=== PATIENT | male | born 1985 | race Caucasian/White ===

== ENCOUNTER 2022-01-19 09:58 | Outpatient (CLI) | payer MEDICARE, MEDICAID, SELFPAY | END 2022-01-19 09:59 | disposition home or self-care (01) | LOC: INJ CL 10:06 | PROVIDERS: Visit Provider Family Medicine | DX: M54.16 Radiculopathy, lumbar region (principal) | CPT/HCPCS: 64483; J1100; Q9966 ==

== ENCOUNTER 2022-06-19 13:07 | Outpatient (CLI) | payer MEDICARE, MEDICAID, SELFPAY | END 2022-06-19 13:08 | disposition home or self-care (01) | LOC: INJ CL 13:09 | PROVIDERS: Visit Provider Family Medicine | DX: M54.16 Radiculopathy, lumbar region (principal); M51.36 Other intervertebral disc degeneration, lumbar region | CPT/HCPCS: 62323; J0702; Q9966 ==

== ENCOUNTER 2022-09-25 10:31 | Outpatient (CLI) | payer MEDICARE, MEDICAID, SELFPAY | END 2022-09-25 10:32 | disposition home or self-care (01) | PROVIDERS: Visit Provider Family Medicine | DX: M54.16 Radiculopathy, lumbar region (principal); M51.36 Other intervertebral disc degeneration, lumbar region | CPT/HCPCS: 64483; J1100; Q9966 ==

== ENCOUNTER 2023-01-08 10:12 | Outpatient (CLI) | payer MEDICARE, MEDICAID, SELFPAY | END 2023-01-08 10:13 | disposition home or self-care (01) | LOC: INJ CL 10:14 | PROVIDERS: Visit Provider Family Medicine | DX: M54.16 Radiculopathy, lumbar region (principal); M51.26 Other intervertebral disc displacement, lumbar region | CPT/HCPCS: 64483; J1100; Q9966 ==

== ENCOUNTER 2023-07-30 06:57 | Outpatient (CLI) | payer MEDICARE, MEDICAID, SELFPAY | END 2023-07-30 06:58 | disposition home or self-care (01) | LOC: INJ CL 06:58 | PROVIDERS: PCP Family Medicine; Visit Provider Family Medicine | DX: M54.16 Radiculopathy, lumbar region (principal); M51.36 Other intervertebral disc degeneration, lumbar region | CPT/HCPCS: 64483; J1100; Q9966 ==

== ENCOUNTER 2024-03-17 20:51 | Emergency (ER) | payer MEDICARE, MEDICAID, SELFPAY ==
[2024-03-17 21:06] VITALS: BP 145/96; PULSE 92; RESP 16; TEMP 37.2; O2SAT 96; BMI 39.4
--- NOTE | 2024-03-17 21:32 | ED.GENADULT ---
HPI - General Adult General Time Seen by Provider: 21:32 Date Seen: 03/17/24 Chief complaint: Hypertension Stated complaint: HBP 152/100, SOB-sent by triage nurse Time Seen by Provider: 03/17/24 21:32 Source: patient Mode of arrival: ambulatory Limitations: no limitations History of Present Illness HPI narrative: Charles is a very pleasant 38-year-old gentleman with history of cardiac abnormality of the left ventricle, bradycardia an asthma who comes to the emergency room at the urging of the [facility] nurse for evaluation regarding a migraine and high blood pressure. Charles states that he had the onset of what he describes as a migraine with pain on his forehead and top of his head 3 days ago that he describes as throbbing. He typically does not get headaches. He has no visual changes with this. He denies any trauma. Yesterday he checked his blood pressure and it was 131/111 and then went down. He had some neck discomfort but it is now resolved and he attributes this to sleeping poorly. Today is blood pressure was 142/100 and with his persistent headache he contacted the triage nurse. He was told to come in to be seen. Charles also describes some shortness of breath this morning with the onset of a nonproductive cough. He thinks that this shortness of breath does increase with activity. He is not currently short of breath. He denies a sore throat but describes it as itchy and states he has diarrhea today. He notes he had spicy food yesterday. He denies otherwise being ill or have any ill contacts. He does get his COVID vaccinations and received this year's COVID vaccination at the beginning of the month. He is surprised about his heart rate in the 90s because usually his heart rate is quite low. He denies lower extremity edema history of DVT recent extended car rides or plane trips or calf pain. He notes he does have a history of asthma but he is not been wheezing. He denies tobacco use alcohol or drugs. Charles notes that when he was approximately 15 years old he fainted. He had a tilt-table test and other tests at that time. He was told that he was going to need a pacemaker by the time he was 31 but he has not had that. Related Data Home Medications ?Medication ?Instructions ?Recorded ?Confirmed estradiol 2 mg tablet mg PO 03/17/24 fluoxetine 10 mg capsule 10 mg PO DAILY 03/17/24 03/17/24 levetiracetam 750 mg tablet 750 mg PO BID 03/17/24 03/17/24 naproxen 500 mg tablet mg PO DAILY 03/17/24 spironolactone 100 mg tablet 100 mg PO DAILY 03/17/24 03/17/24 Allergies Allergy/AdvReac Type Severity Reaction Status Date / Time bee venom protein (honey bee) Allergy Verified 07/30/23 07:45 nortriptyline Allergy Verified 07/30/23 07:45 paroxetine Allergy Verified 07/30/23 07:45 Pertussis Vaccines Allergy Verified 07/30/23 07:45 valproic acid Allergy Verified 07/30/23 07:45 Review of Systems Status of ROS: Reports: 10 or more systems reviewed and unremarkable except as noted in History and below Const: Denies: fever, chills or fatigue Eyes: Denies: change in vision, blind spots or seeing flashes ENMT: Denies: throat pain or nasal congestion Cardio: Reports: shortness of breath with exertion; Denies: chest pain, palpitations, edema or swelling of feet/ankles Resp: Reports: shortness of breath and cough; Denies: wheezing GI: Reports: diarrhea; Denies: abdominal pain, vomiting or blood in stool : Denies: painful urination Integ/Breast: Denies: rash or itching Neuro: Reports: headache; Denies: numbness in extremities Endo: Denies: fatigue Allergy/Immuno: Denies: wheezing PFSH PFSH Social History Smoking Status: Never smoker How often do you have a drink containing alcohol: never AUDIT-C Alcohol total score: 0 Non-prescribed substance use: denies use service: No Exam Narrative: Exam Narrative: Charles is alert and oriented. Very pleasant gentleman in no acute distress. EOM is full. Pupils equal round reactive. No photophobia. Eyebrow raise smile symmetrical. Oral cavity with moist mucous membranes. No erythema exudate in posterior oropharynx. No lymphadenopathy in neck is supple. Heart with regular rate and rhythm. I do not hear additional murmur or rub. Lungs are clear bilaterally. Abdomen soft nontender. Lower extremities with scant peripheral edema. Calves are without any discomfort or erythema. Homans sign is negative. Moving all extremities. Const: Vital Signs, click to edit/add: Vital Signs - 24 hr 03/17/24 21:06 03/17/24 23:09 Temperature 98.9 F Pulse Rate [Pulse Oximeter] 92 70 Respiratory Rate 16 16 Blood Pressure [Ri ght Upper Arm] 145/96 H 123/78 Pulse Oximetry 96 98 Oxygen Delivery Me thod Room Air Room Air Documenting provider has reviewed patient's vital signs: yes Course Course ED Course: At this time patient has a constellation of symptoms that do not lead me to 1 discrete diagnosis. He does have elevated blood pressure but I suspect this is actually secondary to the headache and not the cause of his headache. Will treat his headache with Reglan 10 mg Benadryl 50 mg at this time. Also of concern however is the left ventricle abnormality he is talking about. Do not have those notes for further explanation. I think we will place patient on a threat monitoring analyst do an EKG troponin D-dimer proBNP as well as CBC comprehensive panel and CRP. He is in agreement with this plan. Also headache diarrhea and shortness of breath may be secondary to COVID and thus will do the triple swab. Reevaluation(s) Reevaluation #1: Patient's blood pressure is much improved to 124 systolic. Hemoglobin white count and platelets within normal limits. Electrolyte panel reassuring with a normal potassium and creatinine and LFTs Ts are slightly elevated at 53 AST and 82 ALT. CRP is normal as is proBNP urinalysis without evidence of UTI COVID influenza and RSV negative point of care troponin is negative. Vital Signs Vital signs: Initial Vital Signs Temperature 98.9 F 03/17/24 21:06 Temperature Source Temporal Artery Scan 03/17/24 21:06 Pulse Rate 92 03/17/24 21:06 Pulse Rhythm Regular 03/17/24 21:06 Respiratory Rate 16 03/17/24 21:06 Blood Pressure 145/96 H 03/17/24 21:06 Blood Pressure Mean 112 H 03/17/24 21:06 Blood Pressure Position Sitting 03/17/24 21:06 Pulse Oximetry 96 03/17/24 21:06 Oxygen Delivery Method Room Air 03/17/24 21:06 Vital Signs Temperature 98.9 F 03/17/24 21:06 Pulse Rate 92 03/17/24 21:06 Respiratory Rate 16 03/17/24 21:06 Blood Pressure 145/96 H 03/17/24 21:06 Pulse Oximetry 96 03/17/24 21:06 Oxygen Delivery Method Room Air 03/17/24 21:06 Temperature 98.9 F 03/17/24 21:06 Pulse Rate 70 03/17/24 23:09 Respiratory Rate 16 03/17/24 23:09 Blood Pressure 123/78 03/17/24 23:09 Pulse Oximetry 98 03/17/24 23:09 Oxygen Delivery Method Room Air 03/17/24 23:09 Medications Administered Medications: Discontinued Medications Generic Name Dose Route Start Last Admin Trade Name Radu PRN Reason Stop Dose Admin Diphenhydramine HCl 50 mg 03/17/24 21:57 03/17/24 22:46 Diphenhydramine 50 Mg/Ml Inj IVP 03/17/24 21:58 50 mg ONCE ONE Administration Metoclopramide HCl 10 mg/ 102 mls @ 306 mls/hr 03/17/24 21:57 03/17/24 23:16 Sodium Chloride IVPB 03/17/24 21:58 Infused ONCE ONE Infusion Medical Decision Making MDM Narrative Medical decision making narrative: 1. Headache-resolved. Reglan 10 mg and Benadryl 50 mg IV given in the ED. patient notes that his headache is almost gone. Has tested negative for COVID influenza and RSV. Suggest ibuprofen or Tylenol as needed at home. 2. Shortness of breath-this was episodic earlier today. Patient has negative troponin, normal proBNP as well as EKG. D-dimer is negative. Lung sounds are clear as is x-ray. No shortness of breath or evidence of hypoxia in the ED. consider retesting for COVID if worsening over the next few days. Given the fact that the shortness of breath was episodic earlier today I do not feel the need for a 2nd troponin at this time. Patient has no chest pain or ongoing shortness of breath respiratory distress at this time. 3. Disposition -home at this time. Seek medical attention for worsening symptoms. Patient very excited to go home. Agrees that he feels safe doing so. Medical Records Medical records reviewed: Yes I reviewed the patient's medical records Lab Data Lab results reviewed: Yes I reviewed the patient's lab results Labs: Lab Results 03/17/24 03/17/24 03/17/24 Range/Units 22:04 22:09 22:20 WBC 10.10 (4.50-11.00) K/uL RBC 4.52 (4.30-5.90) m/uL Hgb 13.5 (13.5-17.5) gm/dL Hct 39.9 (37.0-53.0) % MCV 88 (80-100) fL MCH 30 (26-34) pg MCHC 34 (32-36) gm/dL RDW Coeff of Jess 12.3 (11.5-15.5) % Plt Count 285 (140-440) K/uL Neut % (Auto) 73.2 H (42.0-72.0) % Lymph % (Auto) 18.6 L (20-44) % [place] % (Auto) 5.1 (0.0-11.0) % Eos % (Auto) 2.0 (0.0-7.0) % Baso % (Auto) 0.5 (0.0-3.0) % Neut # (Auto) 7.40 H (1.7-7.0) K/uL Lymph # (Auto) 1.90 (0.90-2.90) K/uL [place] # (Auto) 0.50 (0.00-0.90) K/UL Eos # (Auto) 0.20 (0.00-0.50) K/uL Baso # (Auto) 0.05 (0.00-0.30) K/uL Abs Immat Gran (auto) 0.06 (0.00-0.30) K/uL Imm/Tot Granulo (auto) 0.6 % D-Dimer Quant (PE/DVT) 0.33 (0.00-0.50) ug/ml Sodium 134 L (135-149) mmol/L Potassium 3.8 (3.6-5.1) mmol/L Chloride 103 (96-114) mmol/L Carbon Dioxide 24 (20-32) mmol/L Anion Gap 7 (7-15) mEq/L BUN 20 (5-24) mg/dL Creatinine 1.1 (0.5-1.5) mg/dL Estimated Creat Clear 88.95 Estimated GFR 89 ml/min Glucose 97 (60-115) mg/dL Calcium 9.3 (8.4-10.6) mg/dL Magnesium 2.0 (1.5-2.6) mg/dL Total Bilirubin (0.1-1.5) mg/dL AST (12-35) U/L ALT (4-50) U/L Alkaline Phosphatase (40-150) U/L C-Reactive Protein (0.5-1.0) mg/dL NT-Pro-B Natriuret Pep pg/mL Total Protein (6.0-8.3) g/dL Albumin (3.3-5.0) g/dL Urine Color Yellow (Yellow) Urine Appearance Clear (Clear) Urine pH 6.5 (5.0-8.5) Ur Specific Velma 1.010 (1.000-1.030) Urine Protein Negative (Negative) Urine Glucose (UA) Negative (Negative) Urine Ketones Negative (Negative) Urine Blood Negative (Negative) Urine Nitrite Negative (Negative) Urine Bilirubin Negative (Negative) Urine Urobilinogen 0.2 (0.2-1.0) Ur Leukocyte Esterase Trace A (Negative) Urine RBC 0-2 (0-2) Urine WBC 2-5 (0-5) Ur Squamous Epith Cells Few (None-Few) Urine Bacteria Few A (None) SARS-CoV-2 (PCR) Negative SARS-CoV-2 (Negative) Influenza Type A (PCR) Negative PCR FLU A (Negative) Influenza Type B (PCR) Negative PCR FLU B (Negative) RSV (PCR) Negative PCR RSV (Negative) Lab Acknowledgement POC Troponin I (0.01-0.04) ng/ml 03/17/24 03/17/24 03/17/24 Range/Units 22:20 22:25 23:16 WBC (4.50-11.00) K/uL RBC (4.30-5.90) m/uL Hgb (13.5-17.5) gm/dL Hct (37.0-53.0) % MCV (80-100) fL MCH (26-34) pg MCHC (32-36) gm/dL RDW Coeff of Jess (11.5-15.5) % Plt Count (140-440) K/uL Neut % (Auto) (42.0-72.0) % Lymph % (Auto) (20-44) % [place] % (Auto) (0.0-11.0) % Eos % (Auto) (0.0-7.0) % Baso % (Auto) (0.0-3.0) % Neut # (Auto) (1.7-7.0) K/uL Lymph # (Auto) (0.90-2.90) K/uL [place] # (Auto) (0.00-0.90) K/UL Eos # (Auto) (0.00-0.50) K/uL Baso # (Auto) (0.00-0.30) K/uL Abs Immat Gran (auto) (0.00-0.30) K/uL Imm/Tot Granulo (auto) % D-Dimer Quant (PE/DVT) (0.00-0.50) ug/ml Sodium (135-149) mmol/L Potassium (3.6-5.1) mmol/L Chloride (96-114) mmol/L Carbon Dioxide (20-32) mmol/L Anion Gap (7-15) mEq/L BUN (5-24) mg/dL Creatinine (0.5-1.5) mg/dL Estimated Creat Clear Estimated GFR ml/min Glucose (60-115) mg/dL Calcium (8.4-10.6) mg/dL Magnesium Cancelled (1.5-2.6) mg/dL Total Bilirubin 0.2 (0.1-1.5) mg/dL AST 53 H (12-35) U/L ALT 82 H (4-50) U/L Alkaline Phosphatase 81 (40-150) U/L C-Reactive Protein 0.7 (0.5-1.0) mg/dL NT-Pro-B Natriuret Pep < 20 pg/mL Total Protein 7.6 (6.0-8.3) g/dL Albumin 4.5 (3.3-5.0) g/dL Urine Color (Yellow) Urine Appearance (Clear) Urine pH (5.0-8.5) Ur Specific Velma (1.000-1.030) Urine Protein (Negative) Urine Glucose (UA) (Negative) Urine Ketones (Negative) Urine Blood (Negative) Urine Nitrite (Negative) Urine Bilirubin (Negative) Urine Urobilinogen (0.2-1.0) Ur Leukocyte Esterase (Negative) Urine RBC (0-2) Urine WBC (0-5) Ur Squamous Epith Cells (None-Few) Urine Bacteria (None) SARS-CoV-2 (PCR) (Negative) Influenza Type A (PCR) (Negative) Influenza Type B (PCR) (Negative) RSV (PCR) (Negative) Lab Acknowledgement Test Added POC Troponin I 0.00 L (0.01-0.04) ng/ml Imaging Data Chest x-ray: Attestation: I have reviewed the pertinent imaging results. My impression: I do not note any widened mediastinum or large infiltrates. Radiologist's impression: Cardiovasculature and mediastinum: Heart size is normal. Unremarkable mediastinum. Lungs and pleural spaces: Lungs are clear. No sign of infiltrate or mass. No sign of pleural effusion. No pneumothorax. Bones and soft tissues: No significant findings. IMPRESSION: Negative chest. ECG Data Attestation: I personally reviewed and interpreted this ECG as follows: Interpretation: EKG by my read shows sinus rhythm at a rate of 78. I do not note any acute ST or T-wave changes. QT and OR intervals within normal limits. Discharge Plan Discharge Clinical Impression: Headache, Elevated blood pressure reading, Breath shortness Patient Disposition: Home, Self-Care Condition: Improved Additional Instructions: Rest, push fluids. You may use ibuprofen or Tylenol as needed for discomfort. Continue to monitor your blood pressure. If you find that you have elevated readings please follow-up with your primary clinic for further evaluation. Return to the emergency room as needed for increasing shortness of breath, chest pain, vomiting and as needed. Prescriptions: No Action spironolactone 100 mg tablet 100 mg PO DAILY fluoxetine 10 mg capsule 10 mg PO DAILY estradiol 2 mg tablet PO levetiracetam 750 mg tablet 750 mg PO BID naproxen 500 mg tablet PO DAILY Follow Up/Referrals: Cailin Strickland DO [Primary Care Provider] - Stand Alone Forms: [employer] Info Instructions
--- NOTE | 2024-03-17 21:57 | CRLHL7_ITS ---
For Patients: As a result of the Century Cures Act, medical imaging exams and procedure reports are released immediately into your electronic medical record. You may view this report before your referring provider. If you have questions, please contact your health care provider. INDICATION: Shortness of breath and hypertension. TECHNIQUE: Chest 1 views. COMPARISON: None. FINDINGS: Cardiovasculature and mediastinum: Heart size is normal. Unremarkable mediastinum. Lungs and pleural spaces: Lungs are clear. No sign of infiltrate or mass. No sign of pleural effusion. No pneumothorax. Bones and soft tissues: No significant findings. IMPRESSION: Negative chest. Dictated by Raz Paez MD @ 03/17/2024 11:24:09 PM (Electronically Signed)
--- OUTSIDE RECORDS SUMMARY | 2024-03-17 22:29 | XMS_ITS | Clinical Summary ---
Author Organization [facility] Address [place], [place] [address] Care Team Providers Care Sharepoint Engineer Name Role Phone Cailin Strickland DO Primary Care Provider [phone] Allergies Active Allergy Reactions Criticality Noted Date Comments Gabapentin Dizziness 11/26/2023 Nortriptyline Behavioral Disturbances,Bleeding 06/03/2002 Paroxetine Other - Describe In Comment Field 12/31/2014 bleeding Pertussis Vaccines Other - Describe In Comment Field 12/31/2014 unknown Valproic Acid Other - Describe In Comment Field 12/31/2014 Bleeding Venom-Honey Bee Dyspnea High 02/03/2015 Medications Medication Sig Dispensed Refills Start Date End Date Status ibuprofen (ADVIL; MOTRIN) 600 mg tabletIndication s:Acute right ankle pain,Peroneal tendinitis, right leg,Extensor tendinitis of foot Take 1 Tablet (600 mg) by mouth every 6 hours if needed for Pain. Maximum of 3200 mg in 24 hours. 90 Tablet 07/11/2022 Active albuterol HFA (PRO-AIR; VENTOLIN; PROVENTIL) 90 mcg/actuation inhalerIndicatio ns:Mild exercise-induced asthma Inhale 1-2 Puffs by mouth every 4 hours if needed for Shortness of Breath 1st choice or Wheezing 1st choice. 1 Each 5 07/12/2022 Active meclizine (ANTIVERT) 25 mg tabletIndication s:Bradycardia Take 1 Tablet (25 mg) by mouth three times daily. 15 Tablet 06/10/2023 Active EPINEPHrine (EPIPEN) 0.3 mg/0.3 mL auto-injectorInd ications:History of systemic reaction to hymenoptera sting Inject 0.3 mg intramuscular each time if needed for Allergic Reaction. 2 Each 07/15/2023 Active FLUoxetine (PROZAC) 10 mg capsuleIndicatio ns:Depression, major, in remission (HC) Take 1 Capsule (10 mg) by mouth every morning. 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 180 Tablet 07/18/2023 Active CPAPIndications: BOSSMAN (obstructive sleep apnea) CPAP machine for home use at pressure: 5-16 cmw , Nasal mask x1 q 3mos, with Nasal cushion x 2 q mo, Length of Need: 99 months, Frequency of use: Daily 1 Each 11 10/03/2023 Active naproxen (NAPROSYN) 500 mg tabletIndication s:L4-L5 disc bulge Take 1 Tablet (500 mg) by mouth every 12 hours if needed for Pain. 90 Tablet 10/22/2023 Active fluticasone (50 mcg per actuation) nasal solution (FLONASE)Indicat ions:Dysfunction of both eustachian tubes Inhale 2 Sprays into affected nostril(s) once daily. 16 g 5 11/26/2023 Active cholecalciferol (VITAMIN D3) 2,000 unit capsuleIndicatio ns:Vitamin D deficiency Take 1 Capsule (2,000 units) by mouth once daily. 90 Capsule 1 01/16/2024 Active spironolactone (ALDACTONE) 100 mg tabletIndication s:Gender dysphoria Take 1 Tablet (100 mg) by mouth once daily. 90 Tablet 1 01/16/2024 Active estradioL (ESTRACE) 2 mg tabletIndication s:Gender dysphoria Take two tablets (4 mg) by mouth in the morning and one tablet (2 mg) in the evening. 90 Tablet 03/12/2024 Active estradioL (ESTRACE) 2 mg tabletIndication s:Gender dysphoria Take two tablets (4 mg) by mouth in the morning and one tablet (2 mg) in the evening. 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 Well controlled epilepsy with partial complex se izures 07/11/2021 Vitamin D deficiency 07/11/2021 Heart murmur 07/11/2021 L4-L5 disc bulge 07/11/2021 Epilepsy 11/26/2019 Overview (07/12/2022): Indicates he's had epilepsy since he was born he does well with Keppra indicates he's not had a seizure for 7 years describes these as absent seizures. He does see Dr. Hylton Last Assessment & Plan: He reports he is well controlled on Keppra and has had not had a seizure for about 7 years Autism 12/31/2014 Overview (07/12/2022): Last Assessment & Plan: Patient indicates he has a cognitive delay however he does very well during his appointment time is quite a good historian pleasant and cooperative. Assessment & Plan (08/16/2021 1:58 PM CDT): Stable; doing well. Lumbar disc herniation 12/31/2014 Overview (07/12/2022): Last Assessment & Plan: Continue to follow along with providers managing this issue BOSSMAN (obstructive sleep apnea) 12/31/2014 Overview (01/27/2024): NPSG study 03/02/15 AHI 13 increasing to 76 while supine, REM fragmentation Respironics Dream Wear, small mask with medium headgear. 8sm h2o range 7-9 definite clinical improvement at 5 week Last Assessment & Plan: Continue with aggressive management of sleep apnea with CPAP. Encounters Date Type Department Care Team Description 03/16/2024 Telephone [facility] [address] [place] [address] Staff, Chavo Bariatric Weight Management 03/11/2024 Refill [facility] [address] [facility] [place] [address] Cailin Strickland, DO Refill Request (Estrace ) 03/03/2024 2:45 PM CDT Nurse/Clinic Staff Only [facility] [address] [facility] [facility] [place] [address] Immunization/Injec tion (COVID-19/); Immunization/Injec tion 03/03/2024 Travel 02/27/2024 Travel 01/24/2024 11:30 AM CDT Office Visit [facility] [address] [place] [address] [address] [place] [address] Pedro Lindquist MD CV Heart Failure Est (ANNUAL F/U CHF F/U REVIEW LABS DONE 01/15, ECHO DONE 01/20./) 01/24/2024 Travel 01/22/2024 3:45 PM CDT Office Visit [facility] [address] [facility] [place] [address] Quirino Pierce DPM Consult (Bilateral heel pain, R>L) 01/21/2024 9:00 AM CDT Orders Only [facility] [address] [place] [address] [address] [place] [address] 1 scan: (1-Ord) ECHO TTE COMPLETE W CONTRAST ([id number]) 01/21/2024 Travel 01/16/2024 8:20 AM CDT Office Visit [facility] [address] [facility] [place] [address] Cailin Strickland, DO Follow Up 01/16/2024 Medical Messaging [facility] [address] [place] [address] Cailin Strickland DO referal for voice therapy 01/16/2024 Travel 01/13/2024 7:30 AM CDT Orders Only [facility] [address] [place] [address] [place], [place] Lab 01/12/2024 Travel 01/11/2024 Travel 01/08/2024 Travel 01/06/2024 Telephone [facility] [address] [place] [address] Cailin Strickland, Lab 12/17/2023 10:12 AM CDT - 12/17/2023 11:59 PM CDT Hospital Encounter [facility] [address] [facility] [place] [address] Cailin Strickland, Jaki Barros, ADAM from Last 3 Months Immunizations Name Administration Dates Next Due COVID-19 VACCINE SPIKEVAX (M ODERNA 50MCG/0.5ML) 12YO+ PFS 03/03/2024 COVID-19 vaccine (Moderna 100mcg/0.5mL) PF, MDV 09/01/2020,08/04/2020 COVID-19 vaccine (Pfizer-Bio NTech 30mcg/0.3mL) 12YO+ BIVALENT PF, MDV 08/01/2022 COVID-19 vaccine (Pfizer-Bio NTech 30mcg/0.3mL) 12YO+ LUKASZ-SUCROSE PF, MDV 11/28/2021 Influenza Virus, Unspecified 02/01/2021 Influenza, CCIIV3 (Age >=6 MO) 02/16/2024 Influenza, IIV4 03/23/2022 Influenza, IIV4 (=>6mos) MDV 03/31/2023 Pneumococcal Conj 20-valent (Prevnar 20) 023 Td (Age >=7 Years) 07/04/2015 Td, Preservative Free (age >= 7 Years) 4 Tdap 06/19/2023 Family History Medical History Relation Name Comments Asthma Maternal Grandfather Diabetes Maternal Grandmother Coronary artery disease Mother Pace maker in place Diabetes Mother Thyroid Disease Mother Heart attack Other maternal uncle Cancer-colon No Family History Cancer-prostate No Family History Hyperlipidemia No Family History Hypertension No Family History Stroke No Family History Relation Name Status Comments Maternal Grandfather Maternal Grandmother Mother Other Social History Tobacco Use Types Packs/Day Years Used Date Smoking Tobacco: Never Smokeless Tobacco: Former Chew Tobacco Cessation:Counseling Given: Yes Alcohol Use Standard Drinks/Week Comments Not Currently 0 (1 standard drink = 0.6 oz pur e alcohol) PHQ-2 Answer Date Recorded PHQ-2 TOTAL SCORE 0 07/15/2023 Social Connections Answer Date Recorded Frequency of Communication with Friends and Fami ly Not on file 02/08/2024 Financial Resource Strain Answer Date R ecorded Difficulty of Paying Living Expenses 3 02/06/2023 Difficulty of Paying Living Expenses Not on file 02/06/2023 Food Insecurity Answer Date Recorded Worried About Running Out of Food in the Last Ye ar 2 02/06/2023 Transportation Needs Answer Date Record ed Lack of Transportation (Medical) 1 02/06/2023 Housing Stability Answer Date Recorded Unable to Pay for Housing in the Last Year 1 02/06/2023 Sex and Gender Information Value Date Recorded Sex Assigned at Male 11/09/2023 6:55 AM CDT Gender Identity Not on file Sexual Orientation Bisexual 11/09/2023 6: 55 AM CDT Obstetrics History Last Filed Vital Signs Vital Sign Reading Time Taken Comments Blood Pressure 140/80 01/24/2024 11:39 AM CDT Pulse 52 01/24/2024 11:39 AM CDT Temperature 36.8 ??C (98.3 ??F) 06/10/2023 3:41 PM CS T Respiratory Rate 16 06/10/2023 3:41 PM LINE WELDER Oxygen Saturation 99% 01/24/2024 11:39 AM CDT Inhaled Oxygen Concentration - - Weight 118.4 kg (261 lb) 01/24/2024 11:39 AM CDT Height 172.7 cm (5' 8) 01/24/2024 11:39 AM CDT Body Mass Index 39.68 01/24/2024 11:39 AM CDT Plan of Treatment Upcoming Encounters Date Type Department Care Team (Late st Contact Info) Description 04/17/2024 2:30 PM LINE WELDER Orders Only [facility] [address] [place] [address] [place] 04/20/2024 2:25 PM LINE WELDER Office Visit [facility] [address] [place] [address] Cailin Strickland, [address] [place] [address] Health Maintenance Due Date Last Done Comments Depression screening for age 12+ 07/18/2024 07/18/2023, 07/15/2023, 07/13/2022, Additional history exists BMI (ht and wt on same day) for age 18+ 01/23/2025 01/24/2024, 07/15/2023, 06/13/2023, Additional history exists Lipids for age 35-44 07/15/2028 07/15/2023, 07/12/2022, 07/12/2021 Tetanus booster 06/19/2033 06/19/2023, 06/03, 07/04/2015 HIV for age 15-65 Completed 07/12/2022 Hepatitis C screening for age 18-79 Completed 07/12/2022 Pneumococcal series for age 6-64 Aged Out 02/07/2023 No longer eligible based on patient's age to complete this topic Tdap Completed 06/19/2023 Influenza for age 9-49 Completed 4, 03/31/2023, 03/23/2022, Additional history exists COVID-19 vaccine series Completed 03/03/20 24, 03/16/2023, 08/01/2022, Additional history exists Procedures Procedure Name Priority Date/Time Associated Diagnosis Comments EKG 12 LEAD Routine 01/24/2024 11:25 AM CDT Bradycardia ECHO TTE COMPLETE W CONTRAST Routine 01/21/2024 9:42 AM CDT Noncompaction cardiomyopathy (HC) VITAMIN D 25 (DEFICIENCY) Routine 01/13/2024 7:43 AM CDT Medication monitoring encounter ESTRADIOL Routine 01/13/2024 7:43 AM CDT Medication monitoring encounter TESTOSTERONE,TOTAL Routine 01/13/2024 7: 43 AM CDT Medication monitoring encounter BASIC METABOLIC PANEL Routine 01/13/2024 7:43 AM CDT Noncompaction cardiomyopathy (HC) LIPID PANEL W REFLEX MEASURED LDL Routine 07/15/2023 11:28 AM LINE WELDER Screening for lipid disorders LC HIV-1/O/2, 4TH GENERATION Routine 07/12/2022 11:36 AM LINE WELDER Screening for HIV (human immunodeficiency virus) LC HCV ANTIBODY RFX TO QUANT PCR Routine 07/12/2022 11:36 AM LINE WELDER Need for hepatitis C screening test from Last 3 Months or Most Recently Relevant to Health Maintenance Results * EKG 12 LEAD (01/24/2024 11:25 AM CDT) Interpretation Sinus bradycardia Minimal voltage criteria for LVH, may be normal variant ( R in aVL ) Borderline ECG When compared with ECG of 10-Jun-2023 16:00, No significant change was found Ventricular Rate 50 BPM Atrial Rate 50 BPM P-R Interval 138 ms QRS Duration 90 ms QT 446 ms QTc 406 ms P Ola 10 degrees R Ola -6 degrees T Ola 3 degrees 01/24/2024 11:2 5 AM CDT 01/27/2024 7:48 AM CDT Pedro Lindquist MD EKG ORD * ECHO TTE COMPLETE W CONTRAST (01/21/2024 9:42 AM CDT) AORTIC VALVE MEAN PG 5 mmHg LVEDD 4.6 cm EJECTION FRACTION 60 - 65% Anatomical Region Laterality Modality Ultrasound 01/21/2024 8:59 AM CDT Narrative 01/21/2024 11:58 AM CDT ECHOCARDIOGRAM RHYS ELLIS ? Accession#: ?? [id number] : ?1985 38 years Study Date: ?? 01/21/2024 8:59:58 AM Gender: M ?BP: ? 0/0 mmHg Height: 173.00 cm ?BSA: ?2.26 m? ? ? Weight: 115.00 kg ?Tech: ? RMB ? Referring MD: PEDRO LINDQUIST Site: ? [facility] - Morena Agrawal Reading Location: MOBILE OP Patient Location: Procedure: 2D w/ Contrast, Color Doppler and Spectral Doppler. Indication for study: NONCOMPACTION CM Cardiac Rhythm: Normal sinus.Study quality: Fair. Final Impressions: 1. Echo contrast was administered to enhance visualization of all left ventricular segments. 2. Normal LV size, normal wall thickness, normal global systolic function with an estimated EF of 60 - 65%. 3. Prominent apical trabeculations consistent with known diagnosis of noncompaction cardiomyopathy. 4. Right ventricular cavity size is normal, global systolic RV function is normal. 5. No hemodynamically significant valvular heart disease. 6. Normal estimated RA pressure (3 mmHg). 7. No pericardial effusion. Comparison Compared to prior exam of 12/21/22, there has been no significant change. Chamber Sizes and Function Normal left ventricular size, normal wall thickness, normal global systolic function with an estimated EF of 60 - 65%. Left atrial size is normal. Right ventricular cavity size is normal, global systolic RV function is normal. The right atrium is normal. Right atrial volume index is 20 ml/m? ? ?. Right atrial area is 16 cm? ? ?. The pulmonary artery is not well visualized. The sinus of Valsalva is normal sized. The ascending aorta is normal sized. Valves, RV Pressures and Diastolic Function The aortic valve is normal in structure and trileaflet, no stenosis and no regurgitation. The mitral valve is normal in structure, no mitral regurgitation. Normal diastolic function. The tricuspid valve is normal in structure. Tricuspid regurgitation is regurgitation is not evident. The pulmonic valve is not well visualized. Trace pulmonary regurgitation. Masses, Effusion, Shunts There is no pericardial effusion. The inferior vena cava is normal sized, respiratory size variation greater than 50%. No left to right shunting was detected by limited color flow Doppler interrogation of the interatrial septum. MEASUREMENTS AND CALCULATIONS 2-D Measurements and LV Function: LVID (d) 4.6 cm LV FS% (2D) ?? 35 % LVID (s) 2.9 cm LVOT diameter 2.0 cm IVS (d) ??0.9 cm HR ?51 bpm LVPW (d) 0.8 cm LA Vol index ??24 ml/m2 Ao Sinus 3.6 cm RA Vol index ??20 ml/m2 Asc Ao ?? 3.2 cm RA area ? 16 cm? ? ? LA ? 4.2 cm RV Max 4C (d) 3.9 cm Diastology: Mitral ?Tissue Doppler E Peak 1.3 m/s ??e', Septum ? 0.12 m/s A Peak 0.8 m/s ??e', Lateral ?0.16 m/s E/A ?1.7 ?E/e' Average ?? 9.44 DT ? 277 msec Aortic Valve: Vmax ? 1.5 m/s ??BRONSON (V) ?? 2.77 cm? ? ? VTI ?0.33 m ?? BRONSON (I) ?? 2.64 cm? ? ? LVOT V max 1.4 m/s ??Max PG ?9 mmHg LVOT VTI ?? 0.28 m ?? Mean PG ?? 5 mmHg SV ? 87 ml ?Dim Index 0.85 SV index ?? 38 ml/m? ? ? CO ?4.4 l/min ?CI ?2.0 l/min/m? ? ? Mitral Valve: MVA ?2.7 cm? ? ? MV P 1/2 80 msec Tricuspid Valve and estimated PA pressures: TAPSE 2.2 cm Contrast documentation: 3 ml diluted Definity, lot #[id number], [facility]# [id number] was administered peripherally to enhance visualization of all left ventricular segments. . This study was interpreted by an [facility] accredited facility. ??Final ?? Procedure Note Sammy Moore MD - 01/21/2024 ECHOCARDIOGRAM RHYS ELLIS : 1985 38 years Study Date: 01/21/2024 8:59:58 AM Gender: M BP: 0/0 mmHg Height: 173.00 cm BSA: 2.26 m? ? ? Weight: 115.00 kg Tech: [facility] Referring MD: PEDRO LINDQUIST Site: [facility] Reading Location: MOBILE OP Patient Location: Procedure: 2D w/ Contrast, Color Doppler and Spectral Doppler. Indication for study: NONCOMPACTION CM Cardiac Rhythm: Normal sinus.Study quality: Fair. Final Impressions: 1. Echo contrast was administered to enhance visualization of all leftventricular segments. 2. Normal LV size, normal wall thickness, normal global systolic functionwith an estimated EF of 60 - 65%. 3. Prominent apical trabeculations consistent with known diagnosis ofnoncompaction cardiomyopathy. 4. Right ventricular cavity size is normal, global systolic RV functionis normal. 5. No hemodynamically significant valvular heart disease. 6. Normal estimated RA pressure (3 mmHg). 7. No pericardial effusion. Comparison Compared to prior exam of 12/21/22, there has been no significant change. Chamber Sizes and Function Normal left ventricular size, normal wall thickness, normal globalsystolic function with an estimated EF of 60 - 65%. Left atrial size isnormal. Right ventricular cavity size is normal, global systolic RVfunction is normal. The right atrium is normal. Right atrial volume indexis 20 ml/m? ? ?. Right atrial area is 16 cm? ? ?. The pulmonary artery is notwell visualized. The sinus of Valsalva is normal sized. The ascendingaorta is normal sized. Valves, RV Pressures and Diastolic Function The aortic valve is normal in structure and trileaflet, no stenosis and noregurgitation. The mitral valve is normal in structure, no mitralregurgitation. Normal diastolic function. The tricuspid valve is normal instructure. Tricuspid regurgitation is regurgitation is not evident. Thepulmonic valve is not well visualized. Trace pulmonary regurgitation. Masses, Effusion, Shunts There is no pericardial effusion. The inferior vena cava is normal sized,respiratory size variation greater than 50%. No left to right shunting wasdetected by limited color flow Doppler interrogation of the interatrialseptum. MEASUREMENTS AND CALCULATIONS 2-D Measurements and LV Function: LVID (d) 4.6 cm LV FS% (2D) 35 % LVID (s) 2.9 cm LVOT diameter 2.0 cm IVS (d) 0.9 cm HR 51 bpm LVPW (d) 0.8 cm LA Vol index 24 ml/m2 Ao Sinus 3.6 cm RA Vol index 20 ml/m2 Asc Ao 3.2 cm RA area 16 cm? ? ? LA 4.2 cm RV Max 4C (d) 3.9 cm Diastology: Mitral Tissue Doppler E Peak 1.3 m/s e', Septum 0.12 m/s A Peak 0.8 m/s e', Lateral 0.16 m/s E/A 1.7 E/e' Average 9.44 DT 277 msec Aortic Valve: Vmax 1.5 m/s BRONSON (V) 2.77 cm? ? ? VTI 0.33 m BRONSON (I) 2.64 cm? ? ? LVOT V max 1.4 m/s Max PG 9 mmHg LVOT VTI 0.28 m Mean PG 5 mmHg SV 87 ml Dim Index 0.85 SV index 38 ml/m? ? ? CO 4.4 l/min CI 2.0 l/min/m? ? ? Mitral Valve: MVA 2.7 cm? ? ? MV P 1/2 80 msec Tricuspid Valve and estimated PA pressures: TAPSE 2.2 cm Contrast documentation: 3 ml diluted Definity, lot #[id number], [facility]#[id number] was administered peripherally to enhance visualization of allleft ventricular segments. . This study was interpreted by an [facility] accredited facility. Final Pedro Lindquist MD ECHO ORD * VITAMIN D 25 (DEFICIENCY) (01/13/2024 7:43 AM CDT) VITAMIN D TOTAL 25.2 20.0 - 80.0 ng/mL 01/13/2024 5:10 PM CDT [facility] Blood BLOOD SPECIMEN / Unknown Venipuncture / Unknown 01/13/2024 7:43 AM CDT 01/13/2024 7:44 AM CDT Narrative [facility] - 01/13/2024 5:10 PM CDT ? Vitamin D Status Deficiency: ? <20 ng/mL Insufficiency: ?20-29 ng/mL Sufficiency: ?30-80 ng/mL Possible Toxicity: ??>80 ng/mL Based on [place] recommendations Biotin supplements may cause clinically significant interference for this test assay. ??If interference is suspected, it is strongly recommended that biotin is discontinued for at least one week prior to retesting. Cailin Strickland DO SEND OUTS [facility] [address] [place] [address], * TESTOSTERONE,TOTAL (01/13/2024 7:43 AM CDT) TESTOSTERONE,T OTAL 121.0 ng/dL 01/13/2024 2:45 PM CDT [facility] Blood BLOOD SPECIMEN / Unknown Venipuncture / Unknown 01/13/2024 7:43 AM CDT 01/13/2024 7:44 AM CDT Narrative [facility] - 01/13/2024 2:45 PM CDT ? TESTOSTERONE, TOTAL REFERENCE RANGES Age Range ? Female ?Male ?Units 20-50 years ? 8.4-48.1 ?249.0-836.0 ?? ng/dl 50-999 years ?2.9-40.8 ?193.0-740.0 ?? ng/dl Cailin Strickland DO CHEMISTRY [facility] [address] [place] [address], * ESTRADIOL (01/13/2024 7:43 AM CDT) Pathologist [facility] ESTRADIOL 96.8 pg/mL 01/13/2024 2:45 PM CDT [facility] Blood BLOOD SPECIMEN / Unknown Venipuncture / Unknown 01/13/2024 7:43 AM CDT 01/13/2024 7:44 AM CDT [facility] - 01/13/2024 2:45 PM CDT ?Estradiol Ranges Healthy Male ? 11.3- ?? 43.2 ?pg/ml Healthy Female - Follicular ?30.9- ?? 90.4 ?pg/ml Healthy Female - Ovulation ? 60.4- ??533.0 ?pg/ml Healthy Female - Luteal ?60.4- ??232.0 ?pg/ml Healthy Female - , 1st Trimester ?154.0- ??3,243.0 ??pg/ml Healthy Female - , 2nd Trimester ??1,561.0- 21,280.0 ??pg/ml Healthy Female - , 3rd Trimester ??8,525.0->30,000.0 ??pg/ml Healthy Female - Post menopause ? <5.0- ?? 138.0 ?pg/ml Biotin supplements may cause clinically significant interference for this test assay. If interference is suspected, it is strongly recommended that biotin is discontinued for at least one week prior to retesting. Erroneous test results may be obtained from samples taken from patients who have been exposed to vaccines containing rabbit serum or when keeping rabbits as pet animals. Due to the risk of cross reactivity, this assay should not be used when monitoring Estradiol levels in patients being treated with Fulvestrant (Faslodex??) Steroid drugs may interfere with this test. Cailin Strickland DO SEND OUTS [facility] [address] [place] [address], * BASIC METABOLIC PANEL (01/13/2024 7:43 AM CDT) SODIUM 138 136 - 145 mmol/L 01/13/2024 2:45 PM CDT [facility] POTASSIUM 4.2 3.5 - 5.1 mmol/L 01/13/2024 2:45 PM CDT [facility] CHLORIDE 103 98 - 107 mmol/L 01/13/2024 2:45 PM CDT [facility] CO2,TOTAL 25 22 - 29 mmol/L 01/13/2024 2:45 PM CDT [facility] ANION GAP 10 5 - 18 01/13/2024 2:45 PM CDT [facility] GLUCOSE 82 70 - 99 mg/dL 01/13/2024 2:45 PM CDT [facility] CALCIUM 9.6 8.6 - 10.0 mg/dL 01/13/2024 2:45 PM CDT [facility] BUN 11 6 - 20 mg/dL 01/13/2024 2:45 PM CDT [facility] CREATININE 1.08 0.70 - 1.20 mg/dL 01/13/2024 2:45 PM CDT [facility] BUN/CREAT RATIO 10 10 - 20 4 2:45 PM CDT [facility] eGFR >90 >90 mL/min/1.7 3m2 01/13/2024 2:45 PM CDT [facility] Comment:As of 2021, eG FR is calculated by the CKD-EPI creatinine equation without race adjustment. ??eGFR can be influenced by muscle mass, exercise, and diet. ??The reported eGFR is an estimation only and is only applicable if the renal function is stable. Blood BLOOD SPECIMEN / Unknown Venipuncture / Unknown 01/13/2024 7:43 AM CDT 01/13/2024 7:44 AM CDT Pedro Lindquist MD [facility] [address] [place] [id number], * (ABNORMAL) LIPID PANEL W REFLEX MEASURED LDL (07/15/2023 11:28 AM LINE WELDER) CHOLESTEROL,TOTAL 203(H) 100 - 199 mg/dL 07/15/2023 9:35 PM LINE WELDER [facility] Comment: Cholesterol, Total Reference Ranges Desirable <200 mg/dL Borderline 200-239 mg/dL High >=240 mg/dL TRIGLYCERIDES 69 <150 mg/dL 07/15/2023 9:35 PM LINE WELDER [facility] HDL CHOLESTEROL 70 >40 mg/dL 9:35 PM [facility] LABORATORY NON-HDL CHOLESTEROL 133 <145 mg/dl 07/15/2023 9:35 PM LINE WELDER [facility] TRAL LABORATORY CHOL/HDL RATIO 2.90 <4.50 07/15/2023 9:35 PM [facility] LDL CHOLESTEROL 119 <=130 mg/dL 07/15/2023 9:35 PM [facility] WEL[facility] TRAL LABORATORY VLDL CHOLESTEROL 14 <=30 mg/dL 07/15/2023 9:35 PM LINE WELDER [facility] TRAL LABORATORY PROVIDER ORDERED STATUS RANDOM 07/15/2023 9:35 PM LINE WELDER [facility] TRAL LABORATORY Blood BLOOD SPECIMEN / Unknown Butterfly / Unknown 07/15/2023 11:28 AM LINE WELDER 07/15/2023 11:29 AM LINE WELDER Cailin Ashley Strickland DO CHEMISTRY [facility] [address] [place] [id number], [place] * HCV ANTIBODY RFX TO QUANT PCR (07/12/2022 11:36 AM LINE WELDER) HCV Ab <0.1 0.0 - 0.9 s/co ratio 07/14/2022 3:08 PM LINE WELDER [facility] ([facility]) Blood BLOOD SPECIMEN / Unknown Venipuncture / Unknown 07/12/2022 11:36 AM LINE WELDER 07/12/2022 11:39 AM LINE WELDER Narrative [facility] ([facility]) - 07/14/2022 3:08 PM LINE WELDER Performed at: ??01 - [address] ??[id number] Shipping Helper: Daren Pichardo MD, Phone: ??[phone] [facility] Performing Organization Address City/[facility]/ZIP Co de Phone Number [facility] ([facility]) [address] [place] [id number], * HIV-1/O/2, 4TH GENERATION (07/12/2022 11:36 AM LINE WELDER) HIV Scr 4th Gen Non Reactive Non Reactive 07/15/2022 1:07 PM LINE WELDER [facility] ([facility]) Comment: HIV Negative HIV-1/HIV-2 antibodies and HIV-1 p24 antigen were NOT detected. There is no laboratory evidence of HIV infection. Blood BLOOD SPECIMEN / Unknown Venipuncture / Unknown 07/12/2022 11:36 AM LINE WELDER 07/12/2022 11:39 AM LINE WELDER [facility]ative [facility] - 07/15/2022 1:07 PM LINE WELDER Performed at: ??01 - [facility] [address] ??[id number] Shipping Helper: Daren Pichardo MD, Phone: ??[phone] [facility] ([facility]) [address] from Last 3 Months or Most Recently Relevant to Health Maintenance Care Teams Sharepoint Engineer Relationship Specialty Start Date End Date Cailin Strickland DO [address] [place] [address] PCP - General Family Practice 02/07/23
[2024-03-17 22:32] LABS: Appearance Urine Clear (Clear); Bilirubin Urine Negative (Negative); Blood Urine Negative (Negative); Color Urine Yellow (Yellow); Glucose Urine Negative (Negative); Ketones Urine Negative (Negative); Leukocyte Esterase Urine Trace (Negative); Nitrite Urine Negative (Negative); Protein Urine Negative (Negative); Urobilinogen Urine 0.2 (0.2-1.0); pH Urine 6.5 (5.0-8.5)
[2024-03-17 22:38] LABS: Bacteria Urine Few; RBC Urine 0-2 (0-2); Squamous Epithelial Cell Urine Few (None-Few)
[2024-03-17 22:45] LABS: Albumin* 4.5 g/dL (3.3-5.0); Chloride* 103 mmol/L (96-114); Sodium* 134 mmol/L (135-149)
[2024-03-17 22:46] LABS: Potassium* 3.8 mmol/L (3.6-5.1)
[2024-03-17] MEDS: METOCLOPRAMIDE HCL 10 MG in 0.9 % SODIUM CHLORIDE 100 ml 100 ML 306 MG IVPB (22:46)
[2024-03-17] MEDS: diphenhydrAMINE 50 MG/ML inj IVP (22:46)
[2024-03-17 22:47] LABS: Creatinine* 1.1 mg/dL (0.5-1.5); Est. Creatinine Clearance* 88.95; Estimated Glomerular Filt Rate 89 ml/min
[2024-03-17 22:48] LABS: Alanine Aminotransferase* 82 U/L (4-50); Alkaline Phosphatase* 81 U/L (40-150); Anion Gap 7 mEq/L (7-15); Aspartate Amino Transferase* 53 U/L (12-35); Bilirubin Total* 0.2 mg/dL (0.1-1.5); Blood Urea Nitrogen* 20 mg/dL (5-24); Carbon Dioxide* 24 mmol/L (20-32); Glucose* 97 mg/dL (60-115); Total Protein* 7.6 g/dL (6.0-8.3)
[2024-03-17 22:49] LABS: Calcium* 9.3 mg/dL (8.4-10.6)
[2024-03-17 22:51] LABS: C Reactive Protein* 0.7 mg/dL (0.5-1.0)
[2024-03-17 22:53] LABS: PCR FLU A Negative PCR FLU A (Negative); PCR FLU B Negative PCR FLU B (Negative); PCR RSV Negative PCR RSV (Negative); SARS PCR* Negative SARS-CoV-2 (Negative)
[2024-03-17 23:03] LABS: Basophils Absolute Auto 0.05 K/uL (0.00-0.30); Basophils Percent Auto 0.5 % (0.0-3.0); Hematocrit 39.9 % (37.0-53.0); Hemoglobin* 13.5 gm/dL (13.5-17.5); Immature Granulocytes Abs Auto 0.06 K/uL (0.00-0.30); Immature Granulocytes Pct Auto 0.6 %; Lymphocytes Percent Auto 18.6 % (20-44); Mean Corpuscular HGB Conc 34 gm/dL (32-36); Mean Corpuscular Hemoglobin 30 pg (26-34); Mean Corpuscular Volume 88 fL (80-100); Monocytes Percent Auto 5.1 % (0.0-11.0); NT Pro B Type NatriureticPept* < 20 pg/mL; Neutrophils Percent Auto 73.2 % (42.0-72.0); Platelet Count* 285 K/uL (140-440); RDW Coefficient of Variation % 12.3 % (11.5-15.5); Red Blood Count 4.52 m/uL (4.30-5.90)
[2024-03-17 23:04] LABS: Slide Review Reflex No
[2024-03-17 23:09] VITALS: BP 123/78; PULSE 70; RESP 16; O2SAT 98
[2024-03-17 23:43] LABS: D Dimer Quantitative* 0.33 ug/ml (0.00-0.50)
== END 2024-03-17 23:56 | disposition home or self-care (01) ==
PROVIDERS: Emergency Provider Family Medicine; PCP Family Medicine
DX: R51.9 Headache, unspecified (principal); R03.0 Elevated blood-pressure reading, without diagnosis of hypertension; R06.02 Shortness of breath
CPT/HCPCS: 36415; 71045; 80053; 81001; 83735; 83880; 84484; 85025; 85379; 86140; 87086; 87186; 87631; 93005; 96365; 96375; 99284; 99285; J1200; J2765

== ENCOUNTER 2024-05-15 15:12 | Outpatient (CLI) | payer MEDICARE, MEDICAID, SELFPAY ==
--- NOTE | 2024-05-15 15:30 | CRLHL7_ITS ---
For Patients: As a result of the Century Cures Act, medical imaging exams and procedure reports are released immediately into your electronic medical record. You may view this report before your referring provider. If you have questions, please contact your health care provider. INDICATION: Low back pain. Bilateral leg pain TECHNIQUE: Noncontrast sagittal and axial T1, T2, and sagittal STIR sequences are provided. No comparisons. FINDINGS: The overall stature, alignment and intrinsic marrow signal of the lumbar spine is within normal limits. Conus is normal. L1-2, L2-3, L3-4: Unremarkable. L4-5: Moderate bilateral facet arthropathy with mild broad-based posterior disc bulge results in moderate to severe bilateral lateral recess narrowing with contact and compression of the traversing L5 nerve roots. Plbh-un-owgfsawt central canal narrowing with mild right and no left foraminal narrowing. L5-S1: Olxr-ja-uijctbjs bilateral facet arthropathy is slightly worse on the left with leftward eccentric disc bulge results in moderate to severe left lateral recess narrowing with compression of the traversing left S1 nerve root. No central canal or right foraminal narrowing. Mild left foraminal narrowing. IMPRESSION: 1. Moderate to severe bilateral lateral recess narrowing at L4-5 with pnki-kd-rzbskmlk central canal and mild right foraminal narrowing. 2. Moderate to severe left lateral recess narrowing at L5-S1 with mild left foraminal narrowing. Dictated by Art Valverde MD @ 05/16/2024 2:21:00 PM (Electronically Signed)
== END 2024-05-15 15:13 | disposition home or self-care (01) ==
LOC: MRI 15:12
PROVIDERS: PCP Family Medicine; Visit Provider Orthopaedic Surgery Orthopaedic Surgery of the Spine
DX: M48.062 Spinal stenosis, lumbar region with neurogenic claudication (principal); M51.26 Other intervertebral disc displacement, lumbar region; M51.27 Other intervertebral disc displacement, lumbosacral region
CPT/HCPCS: 72148

== ENCOUNTER 2024-06-23 07:09 | Outpatient (CLI) | payer MEDICAID, SELFPAY | END 2024-06-23 07:10 | disposition home or self-care (01) | LOC: INJ CL 07:13 | PROVIDERS: PCP Family Medicine; Visit Provider Family Medicine | DX: M54.16 Radiculopathy, lumbar region (principal); M51.26 Other intervertebral disc displacement, lumbar region | CPT/HCPCS: 64483; J1100; Q9966 ==

== ENCOUNTER 2024-07-09 06:29 | Day surgery (SDC) | payer MEDICARE, SELFPAY ==
[2024-07-09] VITALS (13 sets, daily range): BP systolic 110–149; BP diastolic 47–93; PULSE 57–70; RESP 12–20; TEMP 35.8–36.7; O2SAT 87–98; BMI 38.2
--- OUTSIDE RECORDS SUMMARY | 2024-07-09 06:34 | XMS_ITS | Clinical Summary ---
Author Organization [facility] Address [place], [place] [address] Care Team Providers Care Side Boss Name Role Phone Cailin Strickland DO Primary Care Provider [phone] Cailin Davila PA Unavailable [phone] Allergies Active Allergy Reactions Criticality Noted Date Comments Gabapentin Dizziness 11/26/2023 Nortriptyline Behavioral Disturbances,Bleeding 06/03/2002 Paroxetine Other - Describe In Comment Field 12/31/2014 bleeding Pertussis Vaccines Other - Describe In Comment Field 12/31/2014 unknown Valproic Acid Other - Describe In Comment Field 12/31/2014 Bleeding Venom-Honey Bee Dyspnea High 02/03/2015 Medications albuterol HFA (PRO-AIR; VENTOLIN; PROVENTIL) 90 mcg/actuation inhalerIndicati ons:Mild exercise-induce d asthma Inhale 1-2 Puffs by mouth every 4 hours if needed for Shortness of Breath 1st choice or Wheezing 1st choice. 1 Each 5 023 Active meclizine (ANTIVERT) 25 mg tabletIndicatio ns:Bradycardia Take 1 Tablet (25 mg) by mouth three times daily. 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 2 Each 024 Active FLUoxetine (PROZAC) 10 mg capsuleIndicati ons:Depression, major, in remission (HC) Take 1 Capsule (10 mg) by mouth every morning. 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 180 Tablet 024 Active CPAPIndications :BOSSMAN (obstructive sleep apnea) CPAP machine for home use at pressure: 5-16 cmw , Nasal mask x1 q 3mos, with Nasal cushion x 2 q mo, Length of Need: 99 months, Frequency of use: Daily 1 Each 024 Active fluticasone (50 mcg per actuation) nasal solution (FLONASE)Indica tions:Dysfuncti on of both eustachian tubes Inhale 2 Sprays into affected nostril(s) once daily. 16 g 5 024 Active cholecalciferol (VITAMIN D3) 2,000 unit capsuleIndicati ons:Vitamin D deficiency Take 1 Capsule (2,000 units) by mouth once daily. 90 Capsule 1 024 Active spironolactone (ALDACTONE) 100 mg tabletIndicatio ns:Gender dysphoria Take 1 Tablet (100 mg) by mouth once daily. 90 Tablet 1 024 Active Blood Pressure Monitor KitIndications: Elevated blood pressure reading without diagnosis of hypertension Frequency of testing: daily 1 Each 024 Active naproxen (NAPROSYN) 500 mg tabletIndicatio ns:L4-L5 disc bulge Take 1 Tablet (500 mg) by mouth every 12 hours if needed for Pain. 90 Tablet 024 Active estradioL (ESTRACE) 2 mg tabletIndicatio ns:Gender dysphoria Take 1 Tablet (2 mg) by mouth two times daily. 024 Active levETIRAcetam (KEPPRA) 750 mg tablet Take 750 mg by mouth two times daily. 024 Active Saxenda 3 mg/0.5 mL (18 mg/3 mL) subcutaneous penIndications: Prediabetes,Cla ss 3 severe obesity with body mass index (BMI) of 40.0 to 44.9 in adult, unspecified obesity type, unspecified whether serious comorbidity present (HC) Inject 3 mg subcutaneous once daily. 15 mL 025 Active pen needle 32 gauge x 5/32 (disposable insulin pen needle)Indicati ons:Class 2 obesity with body mass index (BMI) of 38.0 to 38.9 in adult, unspecified obesity type, unspecified whether serious comorbidity present Inject subcutaneous. For use with liraglutide pen. Remove the 2 covers on the insulin pen needle before administering insulin dose. 100 Each 025 Active Saxenda 3 mg/0.5 mL (18 mg/3 mL) subcutaneous penIndications: Class 2 obesity with body mass index (BMI) of 39.0 to 39.9 in adult, unspecified obesity type, unspecified whether serious comorbidity present,Prediab etes Start with 0.6mg subcutaneous daily for 7 days, then increase to 1.2mg subcutaneous daily for 7 days then increase to 1.8mg daily for 7 days then increase to 2.4mg daily for 7 days then increase to 3 mg subcutaneous daily and say at this dose 15 mL 024 2024 Discontinued Active Problems Problem Noted Date Diagnosed Date Obesity, morbid 04/20/2024 Gender dysphoria 07/15/2023 Depression, major, single episode, [...] Encounters Date Type Department Care Team Description 07/05/2024 Travel 07/02/2024 3:30 PM MANAGER WIND Telemedicine [address] [address] Cailin Davila PA Telehealth (No vitals taken); Weight (MWL #3/Saxenda) 07/01/2024 3:00 PM MANAGER WIND Nutrition/Customer Service Sales Consultant [address] [address] 07/01/2024 Travel 06/30/[address] [address] Cailin Davila PA Medication Management (Pen needles) 06/29/2024 7:55 AM MANAGER WIND Office Visit [address] [phone] Vinay Krueger PA Preoperative Exam 06/29/2024 Travel 06/27/2024 Travel 06/25/2024 Travel 06/23/2024 7:40 AM MANAGER WIND Office Visit [facility] [address] [place] [address] Selwyn Gonzalez MD Procedure (Right L5-S1 TFESI) 06/23/2024 Travel 06/18/2024 Refill [facility] [address] [place] [address] Cailin Davila PA Refill Request (Saxenda) 06/18/2024 Travel 06/18/2024 Transcribe Orders [facility] [address] [place] [address] Selwyn Gonzalez MD 06/08/2024 2:55 PM MANAGER WIND - 06/08/2024 11:59 PM MANAGER WIND Hospital Encounter [facility] [address] [place] [address] Anemia, unspecified type 06/08/2024 2:15 PM MANAGER WIND Office Visit [facility] [address] [place] [address] Divine Perrin, ROBLES Consult (Hematology Consult) 06/08/2024 Travel 06/04/[address] [address] Cailin Davila PA Prior Authorization (Saxenda 3 mg/0.5 mL (18 mg/3 mL) subcutaneous pen - APPROVED 06/11/2024-12/09/2024) 06/03/2024 Travel 06/01/2024 8:30 AM MANAGER WIND Telemedicine [address] [phone] Cailin Davila PA Telehealth (No vitals taken); Weight (MWL #2) 05/27/2024 Travel 04/29/2024 2:20 PM MANAGER WIND Orders Only [address] [address] Lab, [facility] 04/29/2024 1:00 PM MANAGER WIND Nutrition/Customer Service Sales Consultant [address] [address] 04/29/2024 Travel 04/24/2024 Travel 04/23/[address] [address] Cailin Davila PA Prior Authorization (Zepbound 2.5 mg/0.5 mL pen PA Excluded) 04/23/[address] [address] Divine Perrin, CHEMICAL RESEARCH WORKER Appointment 04/21/2024 2:00 PM MANAGER WIND Telemedicine [address] [address] Cailin Davila PA Telehealth (No vitals taken); Weight (Initial MWL) 04/21/[address] [address] Cailin Davila PA Refill Request (Zepbound) 04/20/2024 2:25 PM MANAGER WIND Office Visit [facility] [address] [place] [address] Cailin Strickland DO Hand Injury (right pinky finger, ongoing for 1 week); Medication Management (estradiol 2 mg and spironolactone 100mg) 04/20/2024 Travel 04/17/2024 2:30 PM MANAGER WIND Orders Only [facility] [address] [place] [address] Lab, [place] [facility] 04/16/2024 Travel 04/15/2024 Travel 04/14/2024 Orders Only [facility] [address] [place] [address] Cailin Strickland DO Lab (Orders update- prior to visit) 04/13/2024 Refill [facility] [address] [place], [place] [id number] Cailin Strickland, Refill Request (Naproxen 500mg tablets) 04/12/2024 Travel from Last 3 Months Immunizations Name Administration Dates Next Due COVID-19 VACCINE SPIKEVAX (M ODERNA 50MCG/0.5ML) 12YO+ PFS 03/03/2024 COVID-19 vaccine (Moderna 100mcg/0.5mL) PF, MDV 09/01/2020,08/04/2020 COVID-19 vaccine (Pfizer-Bio NTech 30mcg/0.3mL) 12YO+ BIVALENT PF, MDV 08/01/2022 COVID-19 vaccine (Pfizer-Bio NTech 30mcg/0.3mL) 12YO+ LUKASZ-SUCROSE PF, MDV 11/28/2021 Influenza Virus, Unspecified 02/01/2021 Influenza, CCIIV3 (Age >=6 MO) (Egg Free) 2023 Influenza, IIV4 03/23/2022 Influenza, IIV4 (=>6mos) MDV [...] 0 07/15/2023 Social Connections Answer Date Recorded Do you often feel lonely or isolated from those around you? 0 03/19/2024 Financial Resource Strain Answer Date R ecorded Difficulty of Paying Living Expenses 3 03/19/2024 Difficulty of Paying Living Expenses Not on file 03/19/2024 Food Insecurity Answer Date Recorded Do you worry your food will run out before you are able to buy more? 1 03/19/2024 Transportation Needs Answer Date Record ed Does lack of transportation keep you from medica l appointments? 1 03/19/2024 Does lack of transportation keep you from work, meetings or getting things that you need? 1 03/19/2024 Housing Stability Answer Date Recorded What is your housing situation today? 1 03/19/2024 Interpersonal Safety Answer Date Record ed Are you being hit, kicked, p ushed or yelled at (see row info)? No 06/10/2023 Interpersonal Safety Abuse 12 - 18 Not on file 06/10/2023 Interpersonal Safety Ambulatory Vulnerability No t on file 06/10/2023 Utilities Answer Date Recorded Do you have trouble paying f or utilities (for example, heat, electricity, water, phone)? 1 03/19/2024 Sex and Gender Information Value Date Recorded Sex Assigned at Male 11/09/2023 6:55 AM CDT Legal Sex Male 3:28 PM MANAGER WIND Gender Identity Other 04/27/2024 10:30 PM MANAGER WIND Sexual Orientation Bisexual 11/09/2023 6: 55 AM CDT Obstetrics History Last Filed Vital Signs Vital Sign Reading Time Taken Comments Blood Pressure 118/82 06/29/2024 7:58 AM MANAGER WIND Pulse 76 06/29/2024 7:58 AM MANAGER WIND Temperature 36.6 C (97.9 F) 06/29/2024 7:58 AM MANAGER WIND Respiratory Rate 18 06/08/2024 2:14 PM MANAGER WIND Oxygen Saturation 99% 06/29/2024 7:58 AM MANAGER WIND Inhaled Oxygen Concentration - - Weight 114.3 kg (252 lb) 07/02/2024 3:00 PM MANAGER WIND Height 172.7 cm (5' 7.99) 07/02/2024 3:00 PM CS T Body Mass Index 38.33 07/02/2024 3:00 PM MANAGER WIND Plan of Treatment Upcoming Encounters Date Type Department Care Team (Late st Contact Info) Description 07/10/2024 2:00 PM MANAGER WIND Office Visit [facility] [address] [facility] [place] [address] Cailin Strickland, DO [address] [facility] [address] 07/20/2024 2:15 PM MANAGER WIND Orders Only [facility] [address] [place] [address] [place], [place] 07/22/2024 2:25 PM MANAGER WIND Office Visit [facility] [address] [place] [address] Cailin Strickland, DO [address] [place] [address] 08/28/2024 3:30 PM CDT Telemedicine [facility] [address] [place] [address] Cailin Davila PA [address] [place] [address] Health Maintenance Due Date Last Done Comments Pap test for age 21-65 09/01/2007 Depression screening for age 12+ 07/18/2024 07/18/2023, 07/15/2023, 07/13/2022, Additional history exists BMI (ht and wt on same day) for age 18+ 07/02/2025 07/02/2024, 07/01/2024, 06/29/2024, Additional history exists Lipids for age 35-44 04/29/2029 04/29/2024, 07/15/2023, 07/12/2022, Additional history exists Tetanus booster 06/19/2033 06/19/2023, 06/03, 07/04/2015 HIV for age 15-65 Completed 07/12/2022 Hepatitis C screening for ag e 18-79 Completed 07/12/2022 Pneumococcal series for age 6-49 Completed 02/08/20 23 Tdap Completed 06/19/2023 Influenza for age 9-49 Completed , 03/31/2023, 03/23/2022, Additional history exists COVID-19 vaccine series Completed 03/03/20 24, 03/16/2023, 08/01/2022, Additional history exists Procedures Procedure Name Priority Date/Time Associated Diagnosis Comments AMB EPIDURAL STEROID INJECTION Routine 06/23/2024 12:00 AM MANAGER WIND Spinal stenosis, lumbar region, with neurogenic claudication SCAN CORRESP-IMAGING 06/17/2024 9:13 AM MANAGER WIND PERIPHERAL BLD MORPHOLOGY Today 06/08/2024 3:04 PM MANAGER WIND Anemia, unspecified type CBC WITH AUTO DIFFERENTIAL Timed 06/08/2024 3:04 PM MANAGER WIND Anemia, unspecified type RETICULOCYTES Today 06/08/2024 3:04 PM MANAGER WIND Anemia, unspecified type IRON PLUS IRON BINDING CAP Today 06/08/2024 3:04 PM MANAGER WIND Anemia, unspecified type FERRITIN Today 06/08/2024 3:04 PM MANAGER WIND Anemia, unspecified type CBC WITH AUTO DIFFERENTIAL Today 06/08/2024 3:04 PM MANAGER WIND Anemia, unspecified type INSULIN Routine 04/29/2024 2:32 PM MANAGER WIND Class 2 obesity with body mass index (BMI) of 38.0 to 38.9 in adult, unspecified obesity type, unspecified whether serious comorbidity present LIPID PANEL Routine 04/29/2024 2:32 PM MANAGER WIND Class 2 obesity with body mass index (BMI) of 38.0 to 38.9 in adult, unspecified obesity type, unspecified whether serious comorbidity present TSH WITH REFLEX Routine 04/29/2024 2:32 PM MANAGER WIND Class 2 obesity with body mass index (BMI) of 38.0 to 38.9 in adult, unspecified obesity type, unspecified whether serious comorbidity present BOSSMAN (obstructive sleep apnea) Pre-diabetes Hyperglycemia VITAMIN B12 Routine 04/29/2024 2:32 PM MANAGER WIND Class 2 obesity with body mass index (BMI) of 38.0 to 38.9 in adult, unspecified obesity type, unspecified whether serious comorbidity present Encounter for vitamin deficiency screening HEMOGLOBIN A1C Routine 04/29/2024 2:32 PM MANAGER WIND Class 2 obesity with body mass index (BMI) of 38.0 to 38.9 in adult, unspecified obesity type, unspecified whether serious comorbidity present Hyperglycemia CBC W PLT NO DIFF Routine 04/17/2024 2:0 8 PM MANAGER WIND Anemia, unspecified type BASIC METABOLIC PANEL Routine 04/17/2024 2:08 PM MANAGER WIND Gender dysphoria TESTOSTERONE,TOTAL Routine 04/17/2024 2: 08 PM MANAGER WIND Gender dysphoria VITAMIN D 25 (DEFICIENCY) Routine 04/17/2024 2:08 PM MANAGER WIND Vitamin D deficiency ESTRADIOL Routine 04/17/2024 2:08 PM MANAGER WIND Gender dysphoria LC HIV-1/O/2, 4TH GENERATION Routine 07/12/2022 11:36 AM MANAGER WIND Screening for HIV (human immunodeficiency virus) LC HCV ANTIBODY RFX TO QUANT PCR Routine 07/12/2022 11:36 AM MANAGER WIND Need for hepatitis C screening test from Last 3 Months or Most Recently Relevant to Health Maintenance Results * AMB EPIDURAL STEROID INJECTION (06/23/2024 12:00 AM MANAGER WIND) us Selwyn Gonzalez MD NEUROLOGY ORD Final Resu lt * SCAN CORRESP-IMAGING (06/17/2024 9:13 AM MANAGER WIND) Anatomical Region Laterality Modality Other Narrative 06/17/2024 9:13 AM MANAGER WIND Ordered by an unspecified provider. us Other Clinical Staff OTHER Final Resul t * (ABNORMAL) CBC WITH AUTO DIFFERENTIAL (06/08/2024 3:04 PM MANAGER WIND) WHITE BLOOD COUNT 6.8 4.5 - 11.0 thou/cu mm 06/08/2024 3:11 PM [facility] RED BLOOD COUNT 4.34 4.30 - 5.90 mil/cu mm 06/08/2024 3:11 PM [facility] HEMOGLOBIN 13.1(L) 13.5 - 17.5 g/dL 06/08/2024 3:11 PM [facility] HEMATOCRIT 38.1 37.0 - 53.0 % 06/08/2024 3:11 PM [facility] MCV 88 80 - 100 fL 06/08/2024 3:11 PM [facility] MCH 30.2 26.0 - 34.0 pg 06/08/2024 3:11 PM [facility] MCHC 34.4 32.0 - 36.0 g/dL 06/08/2024 3:11 PM [facility] RDW 12.5 11.5 - 15.5 % 06/08/2024 3:11 PM [facility] PLATELET COUNT 293 140 - 440 thou/cu mm 06/08/2024 3:11 PM [facility] MPV 8.8 6.5 - 11.0 fL 06/08/2024 3:11 PM [facility] % NEUT 65.5 % 06/08/2024 3:11 PM [facility] % LYMPH 25.9 % 06/08/2024 3:11 PM [facility] % MONO 5.9 % 06/08/2024 3:11 PM [facility] % EOS 2.4 % 06/08/2024 3:11 PM [facility] % BASO 0.3 % 06/08/2024 3:11 PM [facility] ABSOLUTE NEUTROPHILS 4.4 1.7 - 7.0 thou/cu mm 06/08/2024 3:11 PM [facility] ABSOLUTE LYMPHOCYTES 1.8 0.9 - 2.9 thou/cu mm 06/08/2024 3:11 PM [facility] ABSOLUTE MONOCYTES 0.4 <0.9 thou/cu mm 06/08/2024 3:11 PM [facility] ABSOLUTE EOSINOPHILS 0.2 <0.5 thou/cu mm 06/08/2024 3:11 PM [facility] ABSOLUTE BASOPHILS 0.0 <0.3 thou/cu mm 06/08/2024 3:11 PM [facility] Blood BLOOD SPECIMEN / Unknown Butterfly / Unknown 06/08/2024 3:04 PM MANAGER WIND 06/08/2024 3:07 PM MANAGER WIND Narrative [facility] - 06/08/2024 3:11 PM MANAGER WIND This procedure was originally ordered at [facility]. This procedure was originally ordered at [facility]. us Divine Perrin NP HEMATOLOGY Final Result [facility] [address] [place] [id number] * PERIPHERAL BLD MORPHOLOGY (06/08/2024 3:04 PM MANAGER WIND) Case Report Special Hematology Report Case: [id number] Authorizing Provider: Divine Perrin NP Collected: 06/08/2024 [facility] Ordering Location: [facility] Received: 06/08/[address] [place] [address] Pathologist: Ahmet Anaya MD Specimen: Blood 06/09/2024 9:36 AM [facility] Final Diagnosis PERIPHERAL BLOOD: 1. Mild normocytic anemia 2. See comment 06/09/2024 9:36 AM [facility] Comment The features of the anemia are nonspecific. The differential includes iron deficiency, anemia of chronic disease, anemia of chronic renal insufficiency, anatomic blood loss and medication effect. There is no morphologic evidence of hemolysis. Clinical correlation is recommended. 06/09/2024 9:36 AM [facility] Clinical Information The patient is a 38-year-old with anemia. 06/09/2024 9:36 AM MANAGER WIND [facility] [employer] [facility] CBC and Differential HEMATOLOGY PARAMETERS Tested at: [facility] RESULTS EXPECTED VALUES WBC: 6.8 4.5-16h2102/cum m RBC: 4.34 4.30-5.90 mil/cumm HGB: 13.1 13.5-17.5 gm/di DECREASED HCT: 38.1 37-53% MCV: 88.0 80-100 fl NORMOCYTIC MCH: 30.2 26-34 pg MCHC: 34.4 32-36 gm/dl NORMOCHROMIC RDW: 12.5 11.5-15.5% PLT: 293 [id number]/uL MPV: 8.8 6.5-11 fl Retic: 1.4 0.5-1.5% Differential Tested at: [facility] Absolute (%) Expected (%) (x10*9/L) (x10*9/L) Neutrophils: 4.4 (64.7) 1.7-7.0 (42-72%) Lymphocytes: 1.8 (26.5) 0.9-2.9 (20-44%) Monocytes: 0.4 (5.9) <0.9 (0-11%) Eosinophils: 0.2 (2.9) <0.5 (0-2%) Basophils: 0.0 (0) <0.3 (<3.0%) Imm Grans: 0.0 (0) <0.3 (0-3%) (Metas, Myelos,Pros) 06/09/2024 9:[address] [facility] [employer] [facility] Microscopic Description The final diagnosis is based on microscopic examination of appropriate sections of all specimens. 06/09/2024 9:36 AM MANAGER WIND [facility] [employer] [facility] Additional Information Interpreted at [facility] - [address] [address] 06/09/2024 9:[address] [facility] Blood BLOOD SPECIMEN / Unknown 06/08/2024 3:04 PM MANAGER WIND 06/08/2024 3:04 PM MANAGER WIND Comment:CURRENT MEDICATIONSC urrent Outpatient Medications: albuterol HFA (PRO-AIR; VENTOLIN; PROVENTIL) 90 mcg/actuation inhaler, Inhale 1- 2 Puffs by mouth every 4 hours if needed for Shortness of Breath 1st choice or Wheezing 1st choice., Disp: 1 Each, Rfl: 5 Blood Pressure Monitor Kit, Frequency of testing: daily, Disp: 1 Each, Rfl: 0 cholecalciferol (VITAMIN D3) 2,000 unit capsule, Take 1 Capsule (2,000 units) by mouth once daily., Disp: 90 Capsule, Rfl: 1 CPAP, CPAP machine for home use at pressure: 5-16 cmw , Nasal mask x1 q 3mos, with Nasal cushion x 2 q mo, Length of Need: 99 months, Frequency of use: Daily, Disp: 1 Each, Rfl: 11 EPINEPHrine (EPIPEN) 0.3 mg/0.3 mL auto-injector, Inject 0.3 mg intramuscular each time if needed for Allergic Reaction., Disp: 2 Each, Rfl: prn estradioL (ESTRACE) 2 mg tablet, Take 1 Tablet (2 mg) by mouth two times daily., Disp: , Rfl: FLUoxetine (PROZAC) 10 mg capsule, Take 1 Capsule (10 mg) by mouth every morning., Disp: 90 Capsule, Rfl: 3 fluticasone (50 mcg per actuation) nasal solution (FLONASE), Inhale 2 Sprays into affected nostril(s) once daily., Disp: 16 g, Rfl: 5 levETIRAcetam (Keppra) 1,000 mg tablet, Take 1 Tablet (1,000 mg) by mouth two times daily., Disp: 180 Tablet, Rfl: 0 levETIRAcetam (KEPPRA) 750 mg tablet, Take 750 mg by mouth two times daily., Disp: , Rfl: meclizine (ANTIVERT) 25 mg tablet, Take 1 Tablet (25 mg) by mouth three times daily., Disp: 15 Tablet, Rfl: 0 naproxen (NAPROSYN) 500 mg tablet, Take 1 Tablet (500 mg) by mouth every 12 hours if needed for Pain., Disp: 90 Tablet, Rfl: 0 Saxenda 3 mg/0.5 mL (18 mg/3 mL) subcutaneous pen, Start with 0.6mg subcutaneous daily for 7 days, then increase to 1.2mg subcutaneous daily for 7 days then increase to 1.8mg daily for 7 days then increase to 2.4mg daily for 7 days then increase to 3 mg subcutaneous daily and say at this dose, Disp: 15 mL, Rfl: 0 spironolactone (ALDACTONE) 100 mg tablet, Take 1 Tablet (100 mg) by mouth once daily., Disp: 90 Tablet, Rfl: 1This procedure was originally ordered at [facility]. Divine Perrin NP HEMATOLOGY Final Result Performing Organization Address City/[facility]/ZIP Co de Phone Number [facility] [address] [place] [id number], [place] * IRON PLUS IRON BINDING CAP (06/08/2024 3:04 PM MANAGER WIND) IRON 68 61 - 157 ug/dL 06/09/2024 1:05 PM MANAGER WIND [facility] UIBC (UNSATURATED) 221 112 - 347 ug/dL 06/09/2024 1:05 PM MANAGER WIND [facility] IRON BINDING CAPACITY 289 250 - 400 ug/dL 06/09/2024 1:05 PM MANAGER WIND [facility] IRON,% SATURATION 24 14 - 50 % 06/09/2024 1:05 PM MANAGER WIND [facility] Blood BLOOD SPECIMEN / Unknown Butterfly / Unknown 06/08/2024 3:04 PM MANAGER WIND 06/08/2024 3:07 PM MANAGER WIND us Divine Perrin NP CHEMISTRY Final Result [facility] [address] [place] [address], [place] * RETICULOCYTES (06/08/2024 3:04 PM MANAGER WIND) RETIC% 1.4 0.5 - 1.5 % 06/08/2024 10:12 PM MANAGER WIND [facility] RETIC (ABSOLUTE) 0.06 0.03 - 0.08 mil/cu mm 06/08/2024 10:12 PM MANAGER WIND [facility] Blood BLOOD SPECIMEN / Unknown Butterfly / Unknown 06/08/2024 3:04 PM MANAGER WIND 06/08/2024 3:07 PM MANAGER WIND Narrative [facility] - 06/08/2024 10:12 PM MANAGER WIND This procedure was originally ordered at [facility]. us Divine Perrin NP HEMATOLOGY Final Result Performing Organization Address [facility] Co de Phone Number [facility] [address] [address], [place] * FERRITIN (06/08/2024 3:04 PM MANAGER WIND) Pathologist [facility] FERRITIN 133.0 30.0 - 400.0 ng/mL 06/09/2024 1:05 PM MANAGER WIND [facility] Blood BLOOD SPECIMEN / Unknown Butterfly / Unknown 06/08/2024 3:04 PM MANAGER WIND 06/08/2024 3:07 PM MANAGER WIND Divine Perrin NP CHEMISTRY Final Result Performing Organization Address [facility] de Phone Number [facility] [address] [address], [place] * (ABNORMAL) HEMOGLOBIN A1C (04/29/2024 2:32 PM MANAGER WIND) HEMOGLOBIN A1C 5.7(H) <5.7 % of total Hgb [facility] Comment: For someone without known diabetes, a hemoglobin A1c value between 5.7% and 6.4% is consistent with prediabetes and should be confirmed with a follow-up test. For someone with known diabetes, a value <7% indicates that their diabetes is well controlled. A1c targets should be individualized based on duration of diabetes, age, comorbid conditions, and other considerations. This assay result is consistent with an increased risk of diabetes. Currently, no consensus exists regarding use of hemoglobin A1c for diagnosis of diabetes for children. Blood BLOOD SPECIMEN / Unknown 04/29/2024 2:32 PM MANAGER WIND 04/29/2024 2:33 PM MANAGER WIND Narrative [facility] - 04/30/2024 3:03 AM MANAGER WIND FASTING:YES FASTING: YES Cailin Davila PA CHEMISTRY Final Re sult Performing Organization Address [facility]/ZIP Co de Phone Number [facility] [address] [place] [address], [facility] [address] [facility] [place] [place] [address] * TSH WITH REFLEX (04/29/2024 2:32 PM MANAGER WIND) Pathologist [facility] TSH W/REFLEX TO FT4 2.05 0.40 - 4.50 mIU/L [facility] [place] Blood BLOOD SPECIMEN / Unknown 04/29/2024 2:32 PM MANAGER WIND 04/29/2024 2:33 PM MANAGER WIND Narrative [facility] - 04/30/2024 2:36 AM MANAGER WIND FASTING:YES FASTING: YES us Cailin FONTAINE CHEMISTRY Final Re sult Performing Organization Address [facility] Co de Phone Number [facility] [address] [facility] [place] [address], [facility] [address] [facility] [place] [place] [address] * (ABNORMAL) INSULIN (04/29/2024 2:32 PM MANAGER WIND) Pathologist [facility] INSULIN 96.9(H) uIU/mL [facility] [place] Comment: Reference Range < or = 18.4 Risk: Optimal < or = 18.4 Moderate NA High >18.4 Adult cardiovascular event risk category cut points (optimal, moderate, high) are based on Insulin Reference Interval studies performed at [facility] in 2021. Blood BLOOD SPECIMEN / Unknown 04/29/2024 2:32 PM MANAGER WIND 04/29/2024 2:33 PM MANAGER WIND Narrative [facility] - 05/01/2024 11:36 AM MANAGER WIND FASTING:YES FASTING: YES us Cailin FONTAINE SEND OUTS Final Re sult Performing Organization Address [facility]/ZIP Co de Phone Number [facility] [address] [facility] [place] [address], [facility] [address] [place] [address] * VITAMIN B12 (04/29/2024 2:32 PM MANAGER WIND) [facility] VITAMIN B12 496 200 - 1,100 pg/mL [facility] Blood BLOOD SPECIMEN / Unknown 04/29/2024 2:32 PM MANAGER WIND 04/29/2024 2:33 PM MANAGER WIND Narrative [facility] - 04/30/2024 2:36 AM MANAGER WIND FASTING:YES FASTING: YES Cailin FONTAINE CHEMISTRY Final Re sult [facility] [address] [place] [address], [facility] [address] [place] [address] * (ABNORMAL) LIPID PANEL (04/29/2024 2:32 PM MANAGER WIND) [facility] CHOLESTEROL, TOTAL 187 <200 mg/dL [facility] HDL CHOLESTEROL 59 > OR = 40 mg/dL [facility] TRIGLYCERIDES 156(H) <150 mg/dL [facility] Simon LDL-CHOLESTEROL 103(H) mg/dL (calc) [facility] [place] Comment: Reference range: <100 Desirable range <100 mg/dL for primary prevention; <70 mg/dL for patients with CHD or diabetic patients with > or = 2 CHD risk factors. LDL-C is now calculated using the Raffy-Dashawn calculation, which is a validated novel method providing better accuracy than the Friedewald equation in the estimation of LDL-C. Raffy SS et al. KACEY. 2013;310(19): 1703-8616 (http://education.Prognosis Health Information Systems/faq/JCW819) CHOL/HDLC RATIO 3.2 <5.0 (calc) [facility] NON HDL CHOLESTEROL 128 <130 mg/dL (calc) [facility] Comment: For patients with diabetes plus 1 major ASCVD risk factor, treating to a non-HDL-C goal of <100 mg/dL (LDL-C of <70 mg/dL) is considered a therapeutic option. Blood BLOOD SPECIMEN / Unknown 04/29/2024 2:32 PM MANAGER WIND 04/29/2024 2:33 PM MANAGER WIND Narrative [facility] - 04/30/2024 2:14 AM MANAGER WIND FASTING:YES FASTING: YES Cailin Davila PA CHEMISTRY Final Re sult Performing Organization Address [facility]/ZIP Co de Phone Number [facility] [address] [place] [address], [facility] [address] [place] [address] * (ABNORMAL) VITAMIN D 25 (DEFICIENCY) (04/17/2024 2:08 PM MANAGER WIND) Pathologist [facility] VITAMIN D,25-OH,TOTAL,IA 13(L) 30 - 100 ng/mL [facility] k[facility]en [facility] Comment: Vitamin D Status 25-OH Vitamin D: Deficiency: <20 ng/mL Insufficiency: 20 - 29 ng/mL Optimal: > or = 30 ng/mL For 25-OH Vitamin D testing on patients on D2-supplementation and patients for whom quantitation of D2 and D3 fractions is required, the Quest[facility]ure[facility](TM) 25-OH VIT D, (D2,D3), LC/MS/MS is recommended: order code [id number] (patients >2yrs). See Note 1 Note 1 For additional information, please refer to http://education.ToyTalk.PointBurst/faq/NLZ583 (This link is being provided for informational/ educational purposes only.) Blood BLOOD SPECIMEN / Unknown 04/17/2024 2:08 PM MANAGER WIND 04/17/2024 2:08 PM MANAGER WIND Cailin Strickland DO SEND OUTS Final Resu lt Performing Organization Address [facility]/ZIP Co de Phone Number [facility] [address] [place] [address], [place] [phone] [facility] [address] [facility] [place] [place] [address] * (ABNORMAL) CBC W PLT NO DIFF (04/17/2024 2:08 PM MANAGER WIND) [facility] WHITE BLOOD CELL COUNT 6.8 3.8 - 10.8 Thousand/u L [facility] [place] RED BLOOD CELL COUNT 4.40 4.20 - 5.80 Million/uL [facility] [place] HEMOGLOBIN 12.8(L) 13.2 - 17.1 g/dL [facility] [place] HEMATOCRIT 39.2 38.5 - 50.0 % [facility] [place] MCV 89.1 80.0 - 100.0 fL [facility] [place] MCH 29.1 27.0 - 33.0 pg [facility] [place] MCHC 32.7 32.0 - 36.0 g/dL [facility] [place] Comment: For adults, a slight decrease in the calculated MCHC value (in the range of 30 to 32 g/dL) is most likely not clinically significant; however, it should be interpreted with caution in correlation with other red cell parameters and the patient's clinical condition. RDW 12.5 11.0 - 15.0 % [facility] [place] PLATELET COUNT 312 140 - 400 Thousand/u L [facility] [place] MPV 9.6 7.5 - 12.5 fL [facility] [place] Blood BLOOD SPECIMEN / Unknown 04/17/2024 2:08 PM MANAGER WIND 04/17/2024 2:08 PM MANAGER WIND us Cailin Strickland DO HEMATOLOGY Final Resu lt [facility] [employer] [facility] [facility] [address] [facility] [place] [address], [place] [phone] [facility] [address] [facility] [place] [address] * TESTOSTERONE,TOTAL (04/17/2024 2:08 PM MANAGER WIND) Pathologist [facility] TESTOSTERONE, TOTAL, MS 366 250 - 1,100 ng/dL [facility] Comment: Men with clinically significant hypogonadal symptoms and testosterone values repeatedly in the range of the 200-300 ng/dL or less, may benefit from testosterone treatment after adequate risk and benefits counseling. For additional information, please refer to https://education.[employer]/faq/TotalTestosteroneLCMSMS (This link is being provided for informational/educational purposes only.) (Note) This test was developed and its analytical performance characteristics have been determined by [facility]. It has not been cleared or approved by the FDA. This assay has been validated pursuant to the CLIA regulations and is used for clinical purposes. [facility] [address] [address],[address] [place] [address] Randall Cota MD, PhD Blood BLOOD SPECIMEN / Unknown 04/17/2024 2:08 PM MANAGER WIND 04/17/2024 2:08 PM MANAGER WIND Cailin Strickland DO CHEMISTRY Final Resu lt [facility] [address] [place] [address], [facility] [address] [address], [address] [place] [address] * (ABNORMAL) ESTRADIOL (04/17/2024 2:08 PM MANAGER WIND) [facility] ESTRADIOL 124(H) < OR = 39 pg/mL [facility] Comment: Reference range established on post-pubertal patient population. No pre-pubertal reference range established using this assay. For any patients for whom low Estradiol levels are anticipated (e.g. males, pre-pubertal children and hypogonadal/post-menopausal females), the [facility] Estradiol, Ultrasensitive, LCMSMS assay is recommended (order code [id number]). Please note: patients being treated with the drug fulvestrant (Faslodex(R)) have demonstrated significant interference in immunoassay methods for estradiol measurement. The cross reactivity could lead to falsely elevated estradiol test results leading to an inappropriate clinical assessment of estrogen status. [facility] order code [id number], Ultrasensitive LC/MS/MS demonstrates negligible cross reactivity with fulvestrant. Blood BLOOD SPECIMEN / Unknown 04/17/2024 2:08 PM MANAGER WIND 04/17/2024 2:08 PM MANAGER WIND Cailin Campbellxler DO SEND OUTS Final Resu lt [facility] [address] [place] [address], [facility] [address] [place] [address] * (ABNORMAL) BASIC METABOLIC PANEL (04/17/2024 2:08 PM MANAGER WIND) [facility] GLUCOSE 119(H) 65 - 99 mg/dL [facility] [place] Comment: Fasting reference interval For someone without known diabetes, a glucose value between 100 and 125 mg/dL is consistent with prediabetes and should be confirmed with a follow-up test. UREA NITROGEN (BUN) 16 7 - 25 mg/dL [facility] [place] CREATININE 1.12 0.60 - 1.26 mg/dL [facility] [place] EGFR 87 > OR = 60 mL/min/1. 73m2 [facility] [place] BUN/CREATININE RATIO SEE NOTE: 6 - 22 (calc) [facility] [place] Comment: Not Reported: BUN and Creatinine are within reference range. SODIUM 137 135 - 146 mmol/L [facility] [place] POTASSIUM 4.2 3.5 - 5.3 mmol/L [facility] [place] CHLORIDE 104 98 - 110 mmol/L [facility] [place] CARBON DIOXIDE 25 20 - 32 mmol/L [facility] [place] ELECTROLYTE BALANCE 8 7 - 17 mmol/L (calc) [facility] [place] CALCIUM 9.0 8.6 - 10.3 mg/dL [facility] [place] Blood BLOOD SPECIMEN / Unknown 04/17/2024 2:08 PM MANAGER WIND 04/17/2024 2:08 PM MANAGER WIND Cailin Strickland DO CHEMISTRY Final Resu lt [facility] [address] [place] [address], [place] [phone] [facility] [address] [place] [address] * LC HCV ANTIBODY RFX TO QUANT PCR (07/12/2022 11:36 AM MANAGER WIND) [facility] HCV Ab <0.1 0.0 - 0.9 s/co ratio 07/14/2022 3:08 PM MANAGER WIND [facility] ([facility]) Blood BLOOD SPECIMEN / Unknown Venipuncture / Unknown 07/12/2022 11:36 AM MANAGER WIND 07/12/2022 11:39 AM MANAGER WIND Narrative [facility] ([facility]) - 07/14/2022 3:08 PM MANAGER WIND Performed at: [address] [place] [id number] User Experience Researcher: Daren Pichardo MD, Phone: [phone] [facility] Fin al Result [facility] ([facility]) [facility] [place] [address], * LC HIV-1/O/2, 4TH GENERATION (07/12/2022 11:36 AM MANAGER WIND) [facility] HIV Scr 4th Gen Non Reactive Non Reactive 07/15/2022 1:07 PM MANAGER WIND [facility] ([facility]) Comment: HIV Negative HIV-1/HIV-2 antibodies and HIV-1 p24 antigen were NOT detected. There is no laboratory evidence of HIV infection. Blood BLOOD SPECIMEN / Unknown Venipuncture / Unknown 07/12/2022 11:36 AM MANAGER WIND 07/12/2022 11:39 AM MANAGER WIND Narrative [facility] ([facility]) - 07/15/2022 1:07 PM MANAGER WIND Performed at: 01 - [facility] [address] [place], [place] [id number] User Experience Researcher: Daren Pichardo MD, Phone: [phone] us [facility] Fin al Result [facility] ([facility] [address] [place] [address], from Last 3 Months or Most Recently Relevant to Health Maintenance Insurance MEDICARE PART A HB ONLY [facility] Care Teams Side Boss Relationship Specialty Start Date End Date Cailin Strickland DO [facility] [address] [place] [place] [address] PCP - General Family Practice 02/07/23 Cailin Davila PA [address] [place] [address] Physician Kettle Girl 04/20/24
--- OUTSIDE RECORDS SUMMARY | 2024-07-09 06:34 | XMS_ITS | Continuity of Care Document ---
Author Organization [facility] Address [address] [place] [address] Phone Care Team Providers Care Professional Engineer Name Role Phone Henry CASTILLO, PhD, Prabhakar Unavailable Unavai lable Allergies, Adverse Reactions, Alerts Substance Reaction Status Criticality PAROXETINE HCL Active No Informatio n divalproex sodium Bleeding Active No Informa tion BEE STING KIT Swelling Active No Information Medications Medication Instructions Dosage Effective Dates (start - stop) Status Comments GABAPENTIN 300 MG CAPS 300 Capsule TAKE 1 CAPSULE BY MOUTH THREE TIMES A DAY - Active IBUPROFEN (unknown strength) Not Available - Active NAPROXEN (unknown strength) Not Available - Active ALBUTEROL SULFATE (unknown strength) Not Available - Active KEPPRA (unknown strength) Not Available - Active Procedures Procedure Date Office/Outpatient Visit,Est, Mod 2023 Office/Outpatient Visit,Est, Mod 2023 Office/Outpatient Visit,Est, Mod 2022 Office/Outpatient Visit,Est, Mod 2022 Office/Outpatient Visit,Est, Mod 2022 Office/Outpatient Visit,Est, Mod 2022 Physician Telephone Evaluation 11-20 Min Office/Outpatient Visit,Est, Mod 2021 Office/Outpatient Visit,New, Mod 2021 Advance Directives Directive Yes / No Effective Date File Name No Information Encounters Encounter Description Practice Location Reason(s) For Visit Diagnoses Date Provider Providers Copied on Encounter [facility], [address], [place], [place], [id number] , [place] tel: [phone] [facility] No Information 5 Henry Radford. [facility], [address], [place], [address], [place]. tel: [phone] Office/Outpa tient Visit,Est, Mod [facility], [address], [place], [place], [id number] , [place] tel: [phone] [facility] Spinal stenosis, lumbar region with neurogenic claudication 4 Henry Radford. [facility], [address], [place], [address], [place]. tel: [phone] Referring Provider: Cailin Díaz, [address], [address]. tel:[phone] Office/Outpa tient Visit,Est, Mod [facility], [address], [place], [place], [id number] , [place] tel: [phone] [facility] Spinal stenosis, lumbar region with neurogenic claudication 4 Henry Radford. [facility], [address], [place], [address], [place]. tel: [phone] Referring Provider: Chris Akins, [address], [address]. tel:[phone] [facility], [address], [place], [id number] , [place] tel: [phone] [facility] No Information 3 Aaron Obregon. [facility], [address], [place], [place], [id number] , [place]. tel: [phone] Office/Outpa tient Visit,Est, Mod [facility], [address], [place], [place], [id number] , [place] tel: [phone] [facility] Spinal stenosis, lumbar region with neurogenic claudication 3 Henry Radford. [facility], [address], [place], [address], [place]. tel: [phone] Referring Provider: Chris Akins, [address], [address]. tel:[phone] Office/Outpa tient Visit,Est, Mod [facility], [address], [place], [place], [id number] , [place] tel: [phone] [facility] Spinal stenosis, lumbar region with neurogenic claudication Apr-1 0- 3 Henry Radford. [facility], [address], [place], [address], [place]. tel: [phone] Referring Provider: Chris Akins, [address], [address]. tel:[phone] Office/Outpa tient Visit,Est, Mod [facility], [address], [facility] [place], [id number] , [place] tel: [phone] [facility] Spinal stenosis, lumbar region without neurogenic maykel Mar-0 3 Aaron Obregon. [facility], [address], [facility] [place], [id number] , [place]. tel: [phone] Referring Provider: Chris Akins, [address], [place], [address]. tel:[phone] Office/Outpa tient Visit,Est, Mod [facility], [address], [place], [place], [id number] , [place] tel: [phone] [facility] Spinal stenosis, lumbar region without neurogenic maykel Feb-2 3 Aaron Obregon. [facility], [address], [facility] [place], [id number] , [place]. tel: [phone] Referring Provider: Chris Akins, [address], [address]. tel:[phone] Physician Telephone Evaluation 11-20 Min [facility], [address], [place], [id number] , [place] tel: [phone] [facility] No Information 3 Aaron Obregon. [facility], [address], [facility] [place], [id number] , [place]. tel: [phone] Referring Provider: Chris Akins, [address], [address]. tel:[phone] Office/Outpa tient Visit,Est, Mod [facility], [address], [facility] [place], [id number] , [place] tel: [phone] [facility] No Information 2 Aaron Obregon. [facility], [address], [facility] [place], [id number] , [place]. tel: [phone] Referring Provider: Chris Akins, [address], [address]. tel:[phone] Office/Outpa tient Visit,New, Mod [facility], [address], [facility] [place], [id number] , [place] tel: [phone] [facility] Radiculopathy, lumbar regionSpinal stenosis, lumbar region with neurogenic claudicationInterv ertebral disc disorders w radiculopathy, lumbar regionSpinal stenosis, lumbar region without neurogenic maykel 2 Aaron Obregon. [facility], [address], [place], [place], [id number] , [place]. tel:[phone] Referring Provider: Chris Akins, [address], [address]. [phone] Family History Family Member Type Diagnosis Age At Onset No Information Payers Payer name Insurance type Covered alliance party ID Authormoea timagali(s) Medicare [id number] [facility] 2021 [id number] Social History Type Description Quantity Date Captured Comments Sex Male Smoking Status No Information Chief Complaint And Reason For Visit No Information Reason For Referral Reason For Referral No Information History Of Present Illness Encounter Date Complaint History Of Prese nt Illness No Information Functional Status Date Functional Assessmen t No Information Instructions Date Instruction Additional Infor mation No Information Assessments Type Assessment Date No Information Patient Care Teams Name Effective Dates (start - stop) Status Members No Information
[2024-07-09] MEDS: OXYCODONE (CR) 10 MG TAB.ER.12H PO (07:00)
[2024-07-09] MEDS: LACTATED RINGERS 1000 ML 1,000 ML 100 ML IV (07:00)
[2024-07-09] MEDS: ACETAMINOPHEN 500 MG TABLET 1000 MG PO (07:00)
[2024-07-09] MEDS: CELECOXIB 200 MG CAPSULE PO (07:00)
[2024-07-09] MEDS: SODIUM CHLORIDE 0.9 % (FLUSH) 10 ML SYRINGE IVF (07:25)
[2024-07-09] MEDS: CEFAZOLIN 2 GM INJ IVP (07:55)
[2024-07-09] MEDS: BUPIVACAINE 0.5% 30 ML INJECTION (09:38)
--- NOTE | 2024-07-09 10:11 | W.ANESCHARGE ---
Anesthesia Charges Start Date/Time Anesthesia Start Date: 07/09/24 Anesthesia Start Time: 07:47 Stop Date/Time Anesthesia Stop Date: 07/09/24 Anesthesia Stop Time: 10:09 Coding CPT Codes CPT Codes: ANESTH SURGERY OF SHOULDER - 05307 ([id number]) P2 - PATIENT W/MILD SYST DISEASE, QK - FINGER LIFT OPERATOR 2-4 CNCRNT ANES PROC, QX - HEEL SEAT FITTER MACHINE SVC W/ MD MED DIRECTION
--- NOTE | 2024-07-09 10:15 | W.ANESCHARGE ---
Anesthesia Charges Start Date/Time Anesthesia Start Date: 07/09/24 Anesthesia Start Time: 07:47 Stop Date/Time Anesthesia Stop Date: 07/09/24 Anesthesia Stop Time: 10:09 Coding CPT Codes CPT Codes: ANESTH SURGERY OF SHOULDER - 03188 ([id number]) QK - SENIOR UI DEVELOPER 2-4 CNCRNT ANES PROC, P2 - PATIENT W/MILD SYST DISEASE, QX - HEAD OF TRAINING AND DEVELOPMENT SVC W/ MD MED DIRECTION
--- NOTE | 2024-07-09 10:21 | PM.ORPRC ---
Procedure Note Date of procedure: 07/09/24 Procedure: PREOPERATIVE DIAGNOSIS: Right clavicle shaft fracture atrophic nonunion POSTOPERATIVE DIAGNOSIS: Right clavicle shaft fracture atrophic nonunion NAME OF OPERATION: ORIF SURGEON: Adrian Parks MD ACCOUNTS PAYABLE ADMINISTRATOR: Kacy Burger PA-C ANESTHESIA: General ESTIMATED BLOOD LOSS: 10 mL COMPLICATIONS: None SPECIMENS: None DRAINS: None PREOPERATIVE ANTIBIOTICS: Ancef 2 g INDICATIONS: The patient is a 38-year-old who sustained a right clavicle fracture at age 14. This was treated with a sling. He feels like the fracture never healed correctly as he has a significant amount of motion through his collarbone, with pain and clicking. Nonunion of his fracture was diagnosed. Takedown and fixation was offered. The risks, benefits and expected outcomes were discussed in detail. These included but were not limited to: Infection, bleeding, injury to blood vessel or nerve, venous thromboembolism. All questions were answered to their satisfaction. A modifier 22 should be added to this case. Given the length of time from the fracture to fixation there was a significant amount of scarring and obscured anatomy. Additionally, there were no fracture landmarks to re-establish the anatomy of the clavicle. Finally, because of the atrophic component of the nonunion bone marrow aspirate and bone graft substitute were used to stimulate bone healing. These factors all added time and cost to complete the case. PROCEDURE: General anesthesia was administered. The patient was placed in the lazy beach chair position. The shoulder was prepped and draped in the usual sterile fashion. A longitudinal incision was made over clavicle. Subcutaneous dissection was made with electrocautery to the medial fragment which was subperiosteally exposed. The canal was reestablished with the 2.7 mm drill. The distal fragment located and subperiosteally exposed it as well. The butterfly fragment was identified and subperiosteally exposed and taken to the [facility]. This was morselized for bone graft. The canal of the lateral fragment was reestablished with the 2.7 mm drill. A Synthes locking clavicle plate was placed over the superior cortex. This was secured with lobster reduction clamps on both the medial and lateral fragments. An excellent reduction was obtained, reapposed thing the medial and lateral fragments. A cortical screw was placed in the medial fragment. Given the fracture anatomy the 2 cortical screw holes in the lateral fragment were off the bone posteriorly and were not able to be utilized. Therefore, we manually compressed the fracture and placed a locking screw in the distal fragment. We filled the other holes with locking screws leaving the 2 cortical screw holes, just lateral to the fracture site and the 2 most medial locking screw holes in the plate empty. This results in 4 screws on both sides of the fracture. This provided excellent fixation of the fracture, with an excellent reduction. An intraoperative AP view of the clavicle show an adequate reduction with well placed implants. The wound was irrigated with normal saline. The 4 mL EdCourage Ignite DBM was used. The bone marrow aspirate was taken from the lateral wall of the calcaneal tuberosity. We obtained 5 mL of bone marrow aspirate and mixed 4 mL with DBM. This was then injected at the fracture site and mixed with morselized autograft from the butterfly fragment. The remaining mL of bone marrow aspirate was placed posterior to the fracture site. Soft tissues around the incision were infiltrated with 30 mL of 0.5% Marcaine. We closed the platysma with an 0 Vicryl. Subcutaneous tissues with a 2-0 Vicryl and skin with a 3-0 Monocryl. Glue was used to seal the skin. A dry dressing and sling were applied. The patient tolerated the procedure well. There were no apparent complications. They were carefully transferred to the hospital bed and taken to the postanesthesia care unit in satisfactory condition. PLAN: The patient will be discharged to home. Limited active range of motion of the shoulder will be allowed for 6 weeks. They will work on active range of motion of the elbow wrist and fingers. They will follow up in the office next week for a wound check and an AP and tangential view of the clavicle, prior to being seen.
[2024-07-09] MEDS: OXYCODONE 5 MG TABLET PO (10:54)
[2024-07-09] MEDS: hydrOXYzine pamoate 25 MG CAPSULE PO (11:00)
== END 2024-07-09 12:40 | disposition home or self-care (01) ==
LOC: OR 06:32
PROVIDERS: PCP Family Medicine; Visit Provider Orthopaedic Surgery
PROC: (CPT 23515; principal; 2024-07-09 07:45)
DX: S42.021A Displaced fracture of shaft of right clavicle, initial encounter for closed fracture (principal)
CPT/HCPCS: 23515; 00450; 73000; A9270; C1713; J0330; J0665; J0690; J1100; J1171; J2250; J2405; J2704; J2710; J3010; J7120

== ENCOUNTER 2024-12-01 10:24 | Outpatient (CLI) | payer MEDICARE, SELFPAY ==
--- OUTSIDE RECORDS SUMMARY | 2024-12-01 15:45 | XMS_ITS | Referral Summary ---
Author Organization [facility] Address [address] [place] [id number] Care Team Providers Care Integrated Logistics Programs Director Name Role Phone Md, Not Listed Primary Care Provider Unavailabl e Encounters Date Type Department Care Team Description 10/05/2024 2:00 PM CDT Office Visit [address] [place] [phone] Dodie Arrieta APRN, CNP Seizures (HCC) (Primary Dx) 09/17/2024 8:45 AM CDT Ancillary Procedure [address] [place] [id number] Seizure (HCC) 09/17/2024 10:00 AM CDT Ancillary Procedure [address] [place] [id number] Seizure (HCC) 09/07/2024 11:00 AM CDT Office Visit [address] [place] [phone] Dodie Arrieta APRN, CNP Seizures (HCC) (Primary Dx) from Last 3 Months Allergies Active Allergy Reactions Criticality Noted Date Comments Gabapentin Dizziness 01/01/2023 Nortriptyline Other 02/01/2001 Other Reaction(s): Behavioral Disturbances, Bleeding Paroxetine Other 02/01/2001 bleeding Pertussis Vaccines Other,Unknown 09/01/1987 unknown Valproic Acid Other 02/01/2001 Bleeding Venom-Honey Bee Difficulty breathing High 02/03/2015 Venom-Wasp Difficulty breathing,Dizziness,Sh ortness of breath,Swelling, lips/tongue 11/01/1992 Medications spironolactone (ALDACTONE) 100 mg oral tablet TAKE 1&1/2 TABLETS (150 MG) BY MOUTH ONCE DAILY. Active estradioL (ESTRACE) 2 mg oral tablet Take 4 mg (2 tablets) by mouth in the morning and 2 mg (1 tablet) by mouth in the evening. 3 Active EPINEPHrine (EPIPEN) 0.3 mg/0.3 mL Injection auto-injector Inject 1 Pen into the muscle once a day as needed. 4 Active Cholecalciferol , Vitamin D3, 50 mcg (2,000 unit) oral capsule Take 2,000 Units by mouth Daily. 4 Active albuterol HFA (PROVENTIL;VENT MILLIE HFA) 90 mcg/actuation Inhl inhaler Inhale 1-2 puffs every 4 (four) hours as needed. 5 Active FLUoxetine (PROZAC) 10 mg oral capsule Take 1 capsule (10 mg) by mouth Daily. 5 Active fluticasone (FLONASE) 50 mcg/actuation nasal spray Instill 2 sprays into each nostril Daily. 4 Active SAXENDA 3 mg/0.5 mL (18 mg/3 mL) SubQ INJECT 1.8MG SUBCUTANEOUS DAILY Active JASPER PEN NEEDLE 32 gauge x 5/32 needle USE TO INJECT SAXENDA ONCE DAILY 5 Active levETIRAcetam (KEPPRA) 750 mg oral tablet Take 750 mg by mouth twice a day. 5 Active Active Problems Problem Noted Date Diagnosed Date Obesity, morbid 04/20/2024 Gender dysphoria 07/15/2023 Left ventricular non-compaction cardiomyopathy 0 09/20/2021 Sensorineural hearing loss, bilateral 07/26/2021 Pre-diabetes 07/13/2021 Overview (09/07/2024): A1c of 5.8% on 07/11/21. 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 He does see Dr. Hylton Last Assessment & Plan: He reports he is well controlled on Keppra and has had not had a seizure for about 7 years Depression 11/26/2019 Bradycardia 11/26/2019 Overview (09/07/2024): Reported episode approximately 3 weeks ago of bradycardia to a pulse of 30 during a back injection procedure-at the time of this dictation I do not have all this past medical records but it sounds as if he may have received atropine twice. With a brisk response. Patient indicates that he's been evaluated previously for bradycardia around age 15 he reports having an EP study which indicated that he may need a pacemaker by the time he was 31. Interestingly enough the patient's mother received a pacemaker at age 13 he has a cousin who had a pacemaker at age 2 and perhaps one other cousin who also had a pacemaker as a toddler. Lumbar disc herniation 12/31/2014 Overview (09/07/2024): Last Assessment & Plan: Continue to follow along with providers managing this issue Asthma 12/31/2014 Active autistic disorder 12/31/2014 Overview (09/07/2024): Last Assessment & Plan: Patient indicates he has a cognitive delay however he does very well during his appointment time is quite a good historian pleasant and cooperative. BOSSMAN (obstructive sleep apnea) 12/31/2014 Overview (09/07/2024): NPSG study 03/02/15 AHI 13 increasing to 76 while supine, REM fragmentation Respironics Dream Wear, small mask with medium headgear. 8sm h2o range 7-9 definite clinical improvement at 5 week Last Assessment & Plan: Continue with aggressive management of sleep apnea with CPAP. Immunizations Immunization Administration Dates Next Due Influenza MDCK (Flucelvax trivalent PF) 02/16/20 24 Influenza Unspecified 02/01/2021 Influenza split virus (Fluzone Quadrivalent PF) 03/23/2022 Influenza split virus quadrivalent 03/31/2023 Moderna 12+Yrs mRNA Spikevax COVID Vaccine Seaso nal 03/03/2024,03/16/2023 Pfizer 12+ Yrs Monovalent COVID Vaccine (morrison ca p) 11/28/2021 Pneumococcal PCV20 02/07/2023 SPIKEVAX (Moderna) 12+ Yrs M onovalent COVID Vaccine (dredgemaster) 09/01/2020,08/04/2020 Td 06/19/2023 Td adult absorbed PF (2 Lf) 07/04/2015 Tdap 06/19/2023 Social History Tobacco Use Types Packs/Day Years Used Date Smoking Tobacco: Never Smokeless Tobacco: Former Chew Tobacco Cessation:Counseling Given: Not Answered Alcohol Use Standard Drinks/Week Comments Never 0 (1 standard drink = 0.6 oz pur e alcohol) Sex and Gender Information Value Date Recorded Sex Assigned at Male 08/10/2024 1:25 PM CDT 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 PATIENT NAME: Rhys Worrell LOCATION: [facility] TEST DATE: 09/17/2024 : 1985 TECH NAME: Sawti AGE: 39 DURATION: 00:25:37 GENDER: REF. PHYSICIAN Male Dodie Arrieta APRN, JOSE F CC: N/A MEDICATIONS: Keppra, Prozax REASON FOR REFERRAL: History of Seizure. Findings: Background: normal posterior dominant alpha activity of 11 hz frequency, attenuation with eye opening Photic stimulation: No driving. There is intermittent slow spike and wave discharge localizing to T3 and T5 channels with generalized background slowing in the left temporal leads during photic stimulation Hyperventilation: Not done Sleep record: Stage I and II Other findings: No epileptic seizure noted during the recording EKG- Normal sinus rhythm, 54 bpm. Conclusion: Abnormal EEG. There is intermittent slow spike and wave discharge in the left temporal leads with background slowing indicative of left temporal seizure focus. Patient may have high risk of recurrent seizures. Electronically Signed By: Ney Morocho MD Dodie Arrieta APRN, CNP EEG ORDERABLE Fin al Result * MRI BRAIN W/O CON (09/17/2024 8:16 AM CDT) Anatomical Region Laterality Modality Head Magnetic Resonan ce 09/17/2024 11:0 6 AM CDT Impressions 09/17/2024 11:14 AM CDT Normal exam. SIGNED BY: Paulo Davenport M.D. Narrative 09/17/2024 11:14 AM CDT EXAM: MRI BRAIN W/O CON 09/17/2024 CLINICAL INFORMATION: R56.9 Unspecified convulsions TECHNIQUE: Sagittal FLAIR T1, axial FLAIR T2, axial fat saturated FSE T2, axial GRE, coronal T1 3-D SPGR, axial DWI, coronal FLAIR T2, coronal FSE T2 high resolution through temporal lobes. COMPARISON: None. FINDINGS: BRAIN PARENCHYMA: There is no abnormal mass lesion, hemorrhage, or restricted diffusion. WHITE MATTER: No white matter abnormalities demonstrated. VENTRICLES/BRAIN VOLUME: Normal for age. TEMPORAL LOBES: No abnormalities. No hippocampal atrophy or sclerosis. DEEP MORRISON NUCLEI: Normal in appearance. POSTERIOR FOSSA: Brainstem and cerebellum demonstrate a normal appearance. PARANASAL SINUSES: No significant disease demonstrated. Procedure Note Paulo Davenport MD - 09/17/2024 EXAM: MRI BRAIN W/O CON 09/17/2024 CLINICAL INFORMATION: R56.9 Unspecified convulsions TECHNIQUE: Sagittal FLAIR T1, axial FLAIR T2, axial fat saturated FSE T2,axial GRE, coronal T1 3-D SPGR, axial DWI, coronal FLAIR T2, coronal FSET2 high resolution through temporal lobes. COMPARISON: None. FINDINGS: BRAIN PARENCHYMA: There is no abnormal mass lesion, hemorrhage, orrestricted diffusion. WHITE MATTER: No white matter abnormalities demonstrated. VENTRICLES/BRAIN VOLUME: Normal for age. TEMPORAL LOBES: No abnormalities. No hippocampal atrophy or sclerosis. DEEP MORRISON NUCLEI: Normal in appearance. POSTERIOR FOSSA: Brainstem and cerebellum demonstrate a normalappearance. PARANASAL SINUSES: No significant disease demonstrated. IMPRESSION Normal exam. SIGNED BY: Paulo Davenport M.D. Dodie Arrieta APRN, BARREL WATERER MRI ORDERABLE Fin al Result from Last 3 Months Insurance [facility] Care Teams Integrated Logistics Programs Director Relationship Specialty Start Date End Date Md, Not Listed no address PCP - General Internal Medicine 07/23/24
--- OUTSIDE RECORDS SUMMARY | 2024-12-01 15:45 | XMS_ITS | Clinical Summary ---
Author Organization [facility] Address [address] [place] [id number] Care Team Providers Care Chief Medical Director Name Role Phone Md, Not Listed Primary Care Provider Unavailabl e Allergies Active Allergy Reactions Criticality Noted Date [...] Active JASPER PEN NEEDLE 32 gauge x / needle USE TO INJECT SAXENDA ONCE DAILY [...] Description 10/05/2024 2:00 PM CDT Office Visit [address] [place] [phone] Dodie Arrieta APRN, CNP Seizures (HCC) (Primary Dx) 09/17/2024 10:00 AM CDT Ancillary Procedure [address] [place] [id number] Seizure (HCC) 09/17/2024 8:45 AM CDT Ancillary Procedure [address] [id number] Seizure (HCC) 09/07/2024 11:00 AM CDT Office Visit [address] [phone] Dodie Arrieta APRN, CNP Seizures (HCC) (Primary Dx) from Last 3 Months Immunizations Immunization Administration Dates Next Due Influenza MDCK (Flucelvax trivalent PF) 02/16/20 24 Influenza Unspecified 02/01/2021 Influenza split virus (Fluzone Quadrivalent PF) 03/23/2022 Influenza split virus quadrivalent 03/31/2023 Moderna 12+Yrs mRNA Spikevax COVID Vaccine Seaso nal 03/03/2024,03/16/2023 Pfizer 12+ Yrs Monovalent COVID Vaccine (morrison ca p) 11/28/2021 Pneumococcal PCV20 02/07/2023 SPIKEVAX (Moderna) 12+ Yrs M onovalent COVID Vaccine (registered nurse cardiovascular icu) 09/01/2020,08/04/2020 Td 06/19/2023 Td adult absorbed PF (2 Lf) 07/04/2015 Tdap 06/19/2023 Family History Medical History Relation Comments Alcohol Abuse Brother Alcohol Abuse Father 2 Diabetes Father 2 High Blood Pressure Father 2 High Cholesterol Father 2 Alcohol Abuse Maternal Grandfather 2 Mental Illness Maternal Grandfather 2 Allergies Mother 2 Congenital Heart Defect Mother 2 Depression Mother 2 Diabetes Mother 2 Heart Disease Mother 2 High Blood Pressure Mother 2 High Cholesterol Mother 2 Kidney Disease Mother 2 Liver Disease Mother 2 Obesity Mother 2 Osteoporosis Mother 2 Sleep Apnea Mother 2 Thyroid Disease Mother 2 Alcohol Abuse Paternal Grandmother 2 Diabetes Paternal Grandmother 2 High Blood Pressure Paternal Grandmother 2 Osteoporosis Paternal Grandmother 2 Scoliosis Paternal Grandmother 2 Drug Abuse Sister Mental Illness Sister Relation Status Comments Brother Father 1 Father 2 Maternal Grandfather 1 Maternal Grandfather 2 Mother 1 Mother 2 Paternal Grandmother 1 Paternal Grandmother 2 Sister Social History Tobacco Use Types Packs/Day Years Used Date Smoking Tobacco: Never Smokeless Tobacco: Former Chew Tobacco Cessation:Counseling Given: Not Answered Alcohol Use Standard Drinks/Week Comments Never 0 (1 standard drink = 0.6 oz pur e alcohol) Sex and Gender Information Value Date Recorded Sex Assigned at Male 08/10/2024 1:25 PM CDT 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 Gender Identity Nonbinary 08/10/2024 1:25 PM CDT Sexual Orientation Choose not to disclose 2024 1:25 PM CDT Plan of Treatment Health Maintenance Due Date Last Done Comments Hepatitis C Screening 1985 Lipid Screening 1985 Anxiety Screening (CHIKI-2) 09/01/1987 Depression Follow-Up (PHQ-9) 09/01/1987 Medicare Wellness Visit 07/10/2025 07/10/19 25, 07/15/2023, 07/12/2022, Additional history exists Adult Tetanus Booster 06/19/2033 06/19/2023 , 06/19/2023, 07/04/2015 RSV Vaccines (1 - 1-dose 75+ series) 2061 Pneumococcal Vaccine Completed 02/07/2023 Influenza Vaccine Completed 02/16/2024, , 03/23/2022, Additional history exists COVID-19 Vaccine Completed 03/03/2024, , 08/01/2022, Additional history exists Meningococcal B Vaccine Aged Out No l onger eligible based on patient's age to complete this topic Procedures Procedure Name Priority Date/Time Associated Diagnosis [...] not included. PATIENT NAME: Rhys Worrell LOCATION: [facility] TEST DATE: 09/17/2024 : 1985 TECH NAME: Swati AGE: 39 DURATION: 00:25:37 GENDER: REF. PHYSICIAN Male Dodie Arrieta, SUPERVISOR LOADING, AUTOMATIC MACHINE ATTENDANT CC: N/A MEDICATIONS: Keppra, Prozax REASON FOR [...] seizures. Electronically Signed By: Ney Morocho MD us Dodie MaciasRobel Arrieta APRN, AUTOMATIC MACHINE ATTENDANT EEG ORDERABLE Fin al Result * MRI [...] Normal exam. SIGNED BY: Paulo Davenport M.D. us Dodie Arrieta APRN, AUTOMATIC MACHINE ATTENDANT MRI ORDERABLE Fin al Result from Last 3 Months Insurance [facility] Care Teams Chief Medical Director Relationship Specialty Start Date End Date Md, Not Listed no address PCP - General Internal Medicine 07/23/24
--- OUTSIDE RECORDS SUMMARY | 2024-12-01 15:45 | XMS_ITS | Clinical Summary ---
Author Organization [employer] [facility] Address [facility] [place] [address] Care Team Providers Care Slotter Operator Helper Name Role Phone Cailin Strickland DO Primary Care Provider [phone] Cailin Davila Unavailable [phone] Unavailable [phone] Allergies Active Allergy Reactions Criticality Noted Date Comments Gabapentin Dizziness 11/26/2023 Nortriptyline Behavioral Disturbances,Bleeding 06/03/2002 Paroxetine Other - Describe In Comment Field 12/31/2014 bleeding Pertussis Vaccines Other - Describe In Comment Field 12/31/2014 unknown Valproic Acid Other - Describe In Comment Field 12/31/2014 Bleeding Venom-Honey Bee Dyspnea High 02/03/2015 Medications albuterol HFA (PRO-AIR; VENTOLIN; PROVENTIL) 90 mcg/actuation inhalerIndicatio ns:Mild exercise-induced asthma (HC) Inhale 1-2 Puffs by mouth every 4 hours if needed for Shortness of Breath 1st choice or Wheezing 1st choice. 1 Each 5 07/12/19 23 Active meclizine (ANTIVERT) 25 mg tabletIndication s:Bradycardia Take 1 Tablet (25 mg) by mouth three times daily. 15 Tablet 06/10/19 24 Active EPINEPHrine (EPIPEN) 0.3 mg/0.3 mL auto-injectorInd ications:History of systemic reaction to hymenoptera sting Inject 0.3 mg intramuscular each time if needed for Allergic Reaction. 2 Each 07/15/19 24 Active CPAPIndications: BOSSMAN (obstructive sleep apnea) CPAP machine for home use at pressure: 5-16 cmw , Nasal mask x1 q 3mos, with Nasal cushion x 2 q mo, Length of Need: 99 months, Frequency of use: Daily 1 Each 10/03/19 24 Active fluticasone (50 mcg per actuation) nasal solution (FLONASE)Indicat ions:Dysfunction of both eustachian tubes Inhale 2 Sprays into affected nostril(s) once daily. 16 g 5 11/26/19 24 Active cholecalciferol (VITAMIN D3) 2,000 unit capsuleIndicatio ns:Vitamin D deficiency Take 1 Capsule (2,000 units) by mouth once daily. 90 Capsule 1 01/16/20 24 Active Blood Pressure Monitor KitIndications:E levated blood pressure reading without diagnosis of hypertension Frequency of testing: daily 1 Each 03/19/20 24 Active naproxen (NAPROSYN) 500 mg tabletIndication s:L4-L5 disc bulge Take 1 Tablet (500 mg) by mouth every 12 hours if needed for Pain. 90 Tablet 04/16/20 24 Active pen needle 32 gauge x 5/32 (disposable insulin pen needle)Indicatio ns:Class 2 obesity with body mass index (BMI) of 38.0 to 38.9 in adult, unspecified obesity type, unspecified whether serious comorbidity present Inject subcutaneous. For use with liraglutide pen. Remove the 2 covers on the insulin pen needle before administering insulin dose. 100 Each 06/30/19 25 Active FLUoxetine (PROZAC) 10 mg capsuleIndicatio ns:Mild episode of recurrent major depressive disorder Take 1 Capsule (10 mg) by mouth once daily in the morning. 90 Capsule 3 07/10/19 25 Active Saxenda 3 mg/0.5 mL (18 mg/3 mL) subcutaneous penIndications:w eight loss management for obese patient (bmi >= 30) Take 1.8 mg subcutaneous daily. 9 mL 2 08/29/19 25 Active pen needle 32 gauge x 5/32 (disposable insulin pen needle)Indicatio ns:Class 3 severe obesity with body mass index (BMI) of 40.0 to 44.9 in adult, unspecified obesity type, unspecified whether serious comorbidity present (HC) Inject subcutaneous. For use with liraglutide pen. Remove the 2 covers on the insulin pen needle before administering insulin dose. 100 Each 2 08/29/19 25 Active albuterol HFA 90 mcg/actuation inhalerIndicatio ns:Mild exercise-induced asthma (HC) Inhale 1-2 Puffs by mouth every 4 hours if needed for Shortness Of Breath or Wheezing. 1 Each 5 09/01/19 25 Active EPINEPHrine 0.3 mg/0.3 mL auto-injectorInd ications:History of systemic reaction to hymenoptera sting Inject 0.3 mg (1 Pen) intramuscular each time if needed for Allergic Reaction. 2 Each 3 09/01/19 25 Active estradioL 2 mg tabletIndication s:Gender dysphoria Take 2 Tablets (4 mg) by mouth two times daily. 120 Tablet 3 10/22/19 25 Active spironolactone 100 mg tabletIndication s:Gender dysphoria Take 1.5 Tablets (150 mg) by mouth once daily. 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 180 Tablet 2 10/22/19 25 Active Wegovy 0.25 mg/0.5 mL subcutaneous penIndications:C lass 2 severe obesity with serious comorbidity and body mass index (BMI) of 38.0 to 38.9 in adult, unspecified obesity type (HC) Inject 0.25 mg subcutaneous once weekly. 2 mL 11/27/19 25 Active Active Problems Problem Noted Date Diagnosed [...] aggressive management of sleep apnea with CPAP. Resolved Problems Problem Noted Date Diagnosed Date Resolved Date Depression, major, single episode, moderate 07/12/2022 07/10/2024 Encounters Date Type Department Care Team Description 12/01/2024 11:00 AM CDT Office Visit [facility] [address] [place] [phone] Selwyn Gonzalez MD Procedure (Bilateral L5-S1 TFESI) 12/01/2024 Travel 11/26/2024 11:30 AM CDT Telemedicine [facility] [address] [place] [address] Cailin Davila PA Telehealth (No vitals taken); Weight (MWL follow up) 11/26/2024 Travel 11/23/2024 Travel 11/10/2024 Telephone [facility] [address] [place] [address] Selwyn Gonzalez MD Appointment (Rescheduling - Steroid Epidural Injection ) 11/10/2024 Transcribe Orders [facility] [address] [place] [address] Selwyn Gonzalez MD 10/22/2024 10:30 AM CDT Nutrition/Car Inspector [facility] [address] [place] [address] Medical Nutrition Therapy 10/21/2024 2:25 PM CDT Office Visit [facility] [address] [place] [address] Cailin Strickland DO Medication Management (spironolactone, estradiol) 10/21/2024 Travel 10/19/2024 9:59 AM CDT - 10/19/2024 11:59 PM CDT Hospital Encounter [facility] [address] [place] [address] Gender dysphoria 10/19/2024 Travel 10/17/2024 Travel 10/16/2024 Travel 10/11/2024 Travel 09/02/2024 Refill [facility] [address] [place] [address] Cailin Strickland DO Refill Request (Estradiol) from Last 3 Months Immunizations Immunization Administration Dates Next Due COVID-19 VACCINE SPIKEVAX [...] Answer Date Recorded PHQ-2 TOTAL SCORE 0 07/10/2024 Social Connections Answer Date Recorded Do you [...] AM CDT Legal Sex Male 3:28 PM POST FRAMER Gender Identity Other 04/27/2024 10:30 PM POST FRAMER Sexual Orientation Bisexual 11/09/2023 6: 55 AM CDT Obstetrics History Last Filed Vital Signs Vital Sign Reading Time Taken Comments Blood Pressure 122/75 10/21/2024 2:26 PM CDT Pulse 62 10/21/2024 2:26 PM CDT Temperature 36.6 C (97.9 F) 06/29/2024 7:58 AM POST FRAMER Respiratory Rate 18 06/08/2024 2:14 PM POST FRAMER Oxygen Saturation 99% 06/29/2024 7:58 AM POST FRAMER Inhaled Oxygen Concentration - - Weight 115.2 kg (254 lb) 11/26/2024 11:00 AM CDT Height 172.7 cm (5' 7.99) 11/26/2024 11:00 AM C DT Body Mass Index 38.63 11/26/2024 11:00 AM CDT Plan of Treatment Upcoming Encounters Date Type Department Care Team (Late st Contact Info) Description 01/14/2025 11:30 AM CDT Nutrition/Car Inspector [address] [phone] [place] [address] 01/25/2025 10:00 AM CDT Ancillary Procedure [facility] [address] [place] [phone] 01/26/2025 1:00 PM CDT Office Visit [facility] [place] [address] [place] [phone] Pedro Lindquist MD [address] [place] [address] 02/23/2025 8:30 AM CDT Telemedicine [address] [phone] Cailin Davila PA [address] [place] [address] 04/23/2025 8:20 AM POST FRAMER Office Visit [facility] [address] [place] [address] Cailin Strickland DO [address] [place] [address] Health Maintenance Due Date Last Done Comments Hepatitis B series for 19+ ( 1 of 3 - 19+ 3-dose series) 2005 Influenza Vaccine (#1) 2025 , 03/31/2023, 03/23/2022, Additional history exists Depression screening for age 12+ 07/10/2025 07/10/2024, 07/18/2023, 07/15/2023, Additional history exists BMI (ht and wt on same day) for age 18+ 11/26/2025 11/26/2024, 10/22/2024, 08/28/2024, Additional history exists Lipids for age 35-44 04/29/2029 04/29/2024, 07/15/2023, 07/12/2022, Additional history exists Tetanus booster 06/19/2033 06/19/2023, 06/03, 07/04/2015 HIV for age 15-65 Completed 07/12/2022 Hepatitis C screening for ag e 18-79 Completed 07/12/2022 Pneumococcal series for age 6-49 Completed 02/08/20 COVID-19 vaccine series Completed 03/03/20 24, 03/16/2023, 08/01/2022, Additional history exists Pap test for age 21-65 Discontinued Procedures Procedure Name Priority Date/Time Associated Diagnosis Comments AMB EPIDURAL STEROID INJECTION Routine 12/01/2024 6:53 AM CDT Spinal stenosis, lumbar region with neurogenic claudication TESTOSTERONE,TOTAL Today 10/19/2024 10 :08 AM CDT Gender dysphoria ESTRADIOL Today 10/19/2024 10:08 AM CDT Gender dysphoria BASIC METABOLIC PANEL Today 10/19/2024 10:08 AM CDT Gender dysphoria LIPID PANEL Routine 04/29/2024 2:32 PM POST FRAMER Class 2 obesity with body mass index (BMI) of 38.0 to 38.9 in adult, unspecified obesity type, unspecified whether serious comorbidity present LC HIV-1/O/2, 4TH GENERATION Routine 07/12/2022 11:36 AM POST FRAMER Screening for HIV (human immunodeficiency virus) LC HCV ANTIBODY RFX TO QUANT PCR Routine 07/12/2022 11:36 AM POST FRAMER Need for hepatitis C screening test from Last 3 Months or Most Recently Relevant to Health Maintenance Results * TESTOSTERONE,TOTAL (10/19/2024 10:08 AM CDT) TESTOSTERONE,T OTAL 436.0 ng/dL 10/19/2024 11:23 PM CDT [facility] Blood BLOOD SPECIMEN / Unknown Venipuncture / Unknown 10/19/2024 10:08 AM CDT 10/19/2024 10:08 AM CDT Narrative [facility] - 10/19/2024 11:23 PM CDT TESTOSTERONE, TOTAL REFERENCE RANGES Age Range Female Male Units 20-50 years 8.4-48.1 249.0-836.0 ng/dl 50-999 years 2.9-40.8 193.0-740.0 ng/dl us Cailin Strickland DO CHEMISTRY Final Resu lt [facility] [address] [place] [address], * ESTRADIOL (10/19/2024 10:08 AM CDT) ESTRADIOL 101.0 pg/mL 10/19/2024 11:23 PM CDT [facility] Blood BLOOD SPECIMEN / Unknown Venipuncture / Unknown 10/19/2024 10:08 AM CDT 10/19/2024 10:08 AM CDT Narrative [facility] - 10/19/2024 11:23 PM CDT Estradiol Ranges Healthy Male 11.3- 43.2 pg/ml Healthy Female - Follicular 30.9- 90.4 pg/ml Healthy Female - Ovulation 60.4- 533.0 pg/ml Healthy Female - Luteal 60.4- 232.0 pg/ml Healthy Female - , 1st Trimester 154.0- 3,243.0 pg/ml Healthy Female - , 2nd Trimester 1,561.0- 21,280.0 pg/ml Healthy Female - , 3rd Trimester 8,525.0->30,000.0 pg/ml Healthy Female - Post menopause <5.0- 138.0 pg/ml Biotin supplements may cause clinically significant interference [...] levels in patients being treated with Fulvestrant (Faslodex ) Steroid drugs may interfere with this test. us Cailin Strickland DO SEND OUTS Final Resu lt [facility] [address] [place] [address], * (ABNORMAL) BASIC METABOLIC PANEL (10/19/2024 10:08 AM CDT) Pathologist [facility] SODIUM 137 136 - 145 mmol/L 10/19/2024 10:30 AM CDT [facility] POTASSIUM 4.6 3.5 - 5.1 mmol/L 10/19/2024 10:30 AM T [facility] CHLORIDE 103 98 - 107 mmol/L 10/19/2024 10:30 AM [facility] CO2,TOTAL 25 22 - 29 mmol/L 10/19/2024 10:30 AM [facility] ANION GAP 9 5 - 18 10/19/2024 10:30 AM [facility] GLUCOSE 96 70 - 99 mg/dL 10/19/2024 10:30 AM [facility] CALCIUM 9.5 8.8 - 10.4 mg/dL 10/19/2024 10:30 AM [facility] Comment: Reference ranges for this test were updated on 04/07/2024 to reflect our healthy population more accurately. Reference range changes are not retroactively applied to results, but previous results using the same methodology can be interpreted in the context of the new reference range. BUN 12 6 - 20 mg/dL 10/19/2024 10:30 AM [facility] CREATININE 1.13 0.70 - 1.20 mg/dL 10/19/2024 10:30 AM [facility] BUN/CREAT RATIO 11 10 - 20 10:30 AM [facility] eGFR 85(L) >90 mL/min/1.7 3m2 10/19/2024 10:30 AM [facility] Comment:As of 2021, eG FR is calculated by the CKD-EPI creatinine equation without race adjustment. eGFR can be influenced by muscle mass, exercise, and diet. The reported eGFR is an estimation only and is only applicable if the renal function is stable. Blood BLOOD SPECIMEN / Unknown Venipuncture / Unknown 10/19/2024 10:08 AM CDT 10/19/2024 10:08 AM [facility] us Cailin Strickland DO CHEMISTRY Final Resu lt [facility] [address] [place] [address] * (ABNORMAL) LIPID PANEL (04/29/2024 2:32 PM POST FRAMER) [facility] CHOLESTEROL, TOTAL 187 <200 mg/dL [facility] HDL CHOLESTEROL 59 > OR = 40 mg/dL [facility] TRIGLYCERIDES 156(H) <150 mg/dL [facility] LDL-CHOLESTEROL 103(H) mg/dL (calc) [facility] Comment: Reference range: <100 Desirable range <100 mg/dL for primary prevention; <70 mg/dL for patients with CHD or diabetic patients with > or = 2 CHD risk factors. LDL-C is now calculated using the Alona calculation, which is a validated novel method providing better accuracy than the Friedewald equation in the estimation of LDL-C. Raffy SS et al. KACEY. 2013;310(19): 4553-0632 (http://education.Gemisimo/faq/IEP665) CHOL/HDLC RATIO 3.2 <5.0 (calc) [facility] [place] NON HDL CHOLESTEROL 128 <130 mg/dL (calc) [facility] [place] Comment: For patients with diabetes plus 1 major ASCVD risk factor, treating to a non-HDL-C goal of <100 mg/dL (LDL-C of <70 mg/dL) is considered a therapeutic option. Blood BLOOD SPECIMEN / Unknown 04/29/2024 2:32 PM POST FRAMER 04/29/2024 2:33 PM POST FRAMER Narrative [facility] - 04/30/2024 2:14 AM POST FRAMER FASTING:YES FASTING: YES Cailin [facility] CHEMISTR[facility] Final Re sult [facility] [address] [place] [address], [email or web address] [address] [place] [address] * LC HCV ANTIBODY RFX TO QUANT PCR (07/12/2022 11:36 AM POST FRAMER) HCV Ab <0.1 0.0 - 0.9 s/co ratio 07/14/2022 3:08 PM POST FRAMER [facility] ([facility]) Blood BLOOD SPECIMEN / Unknown Venipuncture / Unknown 07/12/2022 11:36 AM POST FRAMER 07/12/2022 11:39 AM POST FRAMER [facility] ([facility]) - 07/14/2022 3:08 PM POST FRAMER Performed at: [address] [place] [id number] Oil Tank Car Cleaner: Daren Pichardo MD, Phone: [phone] [facility] Fin al Result Performing Organization Address City/[facility] Co de Phone Number [facility] ([facility]) [address] [place] [address] * LC HIV-1/O/2, 4TH GENERATION (07/12/2022 11:36 AM POST FRAMER) HIV Scr 4th Gen Non Reactive Non Reactive 07/15/2022 1:07 PM POST FRAMER [facility] ([facility]) Comment: HIV Negative HIV-1/HIV-2 antibodies and HIV-1 p24 antigen were NOT detected. There is no laboratory evidence of HIV infection. Blood BLOOD SPECIMEN / Unknown Venipuncture / Unknown 07/12/2022 11:36 AM POST FRAMER 07/12/2022 11:39 AM POST FRAMER [facility] ESOTERIC TEST[facility] ([facility]) - 07/15/2022 1:07 PM POST FRAMER Performed at: [address] [place] [id number] Oil Tank Car Cleaner: Daren Pichardo MD, Phone: [phone] [facility] Fin al Result Performing Organization Address City/[facility]/ZIP Co de Phone Number [facility] ([facility]) [address] [place] [address] from Last 3 Months or Most Recently Relevant to Health Maintenance Insurance MEDICARE PART A HB ONLY [facility] Care Teams Slotter Operator Helper Relationship Specialty Start Date End Date Cailin Strickland [place] [address] PCP - General Family Practice 02/07/23 Cailin Davila PA [address] [place] [address] Physician Software Engineering Specialist 04/20/[address] [place] [address] Flaring Machine Operator 11/19/24
--- OUTSIDE RECORDS SUMMARY | 2024-12-01 16:45 | XMS_ITS | CCD ---
Author Organization Unknown Care Team Providers Care Upholstery Technician Name Role Phone [place], [place] Primary Care Provider Unava ilable Unavailable Chronic Care Management Unavaila ble Summary Purpose DataExchange Insurance Providers Payer name Policy type / Coverage type Covered green party ID Effective Begin Date Effective End Date Ucare [facility] Medicare Risk [id number] Unknown Medicaid [facility] Medicare Risk [id number] Unknow n Family History Family History data not found Medication Administered No Medication Administered data Reason For Visit No Reason For Visit data
--- OUTSIDE RECORDS SUMMARY | 2024-12-02 00:18 | XMS_ITS | Clinical Summary ---
Author Organization [facility] Address [facility] [place] [address] Care Team Providers Care Kiln Operator Name Role Phone Cailin Strickland DO Primary Care Provider [phone] Cailin Davila Unavailable [phone] Unavailable [phone] Allergies Active Allergy Reactions Criticality Noted Date [...] Description 12/01/2024 11:00 AM CDT Office Visit [facility] [address] [place] [phone] Selwyn Gonzalez MD Procedure (Bilateral L5-S1 TFESI) 12/01/2024 Travel 11/26/2024 11:30 AM CDT Telemedicine [facility] [address] [place] [address] Cailin Davila PA Telehealth (No vitals taken); Weight (MWL follow up) 11/26/2024 Travel 11/23/2024 Travel 11/10/2024 Telephone [facility] [address] [facility] [place] [address] Selwyn Gonzalez MD Appointment (Rescheduling - Steroid Epidural Injection ) 11/10/2024 Transcribe Orders [facility] [address] [place] [address] Selwyn Gonzalez MD 10/22/2024 10:30 AM CDT Nutrition/Gm Mobile [facility] [address] [place] [address] Medical Nutrition Therapy 10/21/2024 2:25 PM CDT Office Visit [facility] [address] [place] [address] Cailin Strickland DO Medication Management (spironolactone, estradiol) 10/21/2024 Travel 10/19/2024 9:59 AM CDT - 10/19/2024 11:59 PM CDT Hospital Encounter [facility] [address] [place] [address] Gender dysphoria 10/19/2024 Travel 10/17/2024 Travel 10/16/2024 Travel 10/11/2024 Travel 09/02/2024 Refill [facility] [address] [place] [address] Cailin Strickland DO Refill Request (Estradiol) from [...] AM CDT Legal Sex Male 3:28 PM SUPERVISOR MAINTENANCE Gender Identity Other 04/27/2024 10:30 PM SUPERVISOR MAINTENANCE Sexual Orientation Bisexual 11/09/2023 6: 55 AM CDT Obstetrics History Last Filed Vital Signs Vital Sign Reading Time Taken Comments Blood Pressure 122/75 10/21/2024 2:26 PM CDT Pulse 62 10/21/2024 2:26 PM CDT Temperature 36.6 C (97.9 F) 06/29/2024 7:58 AM SUPERVISOR MAINTENANCE Respiratory Rate 18 06/08/2024 2:14 PM SUPERVISOR MAINTENANCE Oxygen Saturation 99% 06/29/2024 7:58 AM SUPERVISOR MAINTENANCE Inhaled Oxygen Concentration - - Weight 115.2 kg (254 lb) 11/26/2024 11:00 AM CDT Height 172.7 cm (5' 7.99) 11/26/2024 11:00 AM C DT Body Mass Index 38.63 11/26/2024 11:00 AM CDT Plan of Treatment Upcoming Encounters Date Type Department Care Team (Late st Contact Info) Description 01/14/2025 11:30 AM CDT Nutrition/Gm Mobile [address] [phone] [place] [address] 01/25/2025 10:00 AM CDT Ancillary Procedure [facility] [address] [place] [phone] 01/26/2025 1:00 PM CDT Office Visit [facility] [address] [place] [phone] Pedro Lindquist MD [address] [place] [address] 02/23/2025 8:30 AM CDT Telemedicine [address] [phone] Cailin Davila PA [address] [place] [address] 04/23/2025 8:20 AM SUPERVISOR MAINTENANCE Office Visit [facility] [address] [place] [address] Cailin Strickland DO [address] [place] [address] Health Maintenance Due Date Last Done Comments [...] dysphoria LIPID PANEL Routine 04/29/2024 2:32 PM SUPERVISOR MAINTENANCE Class 2 obesity with body mass index (BMI) of 38.0 to 38.9 in adult, unspecified obesity type, unspecified whether serious comorbidity present LC HIV-1/O/2, 4TH GENERATION Routine 07/12/2022 11:36 AM SUPERVISOR MAINTENANCE Screening for HIV (human immunodeficiency virus) LC HCV ANTIBODY RFX TO QUANT PCR Routine 07/12/2022 11:36 AM SUPERVISOR MAINTENANCE Need for hepatitis C screening test from Last 3 Months or Most Recently Relevant to Health Maintenance Results * TESTOSTERONE,TOTAL (10/19/2024 10:08 AM CDT) TESTOSTERONE,T OTAL 436.0 ng/dL 10/19/2024 11:23 PM CDT [facility] Blood BLOOD SPECIMEN / Unknown Venipuncture / Unknown 10/19/2024 10:08 AM CDT 10/19/2024 10:08 AM CDT Narrative [facility] - 10/19/2024 11:23 PM CDT TESTOSTERONE, TOTAL REFERENCE RANGES Age Range Female Male Units 20-50 years 8.4-48.1 249.0-836.0 ng/dl 50-999 years 2.9-40.8 193.0-740.0 ng/dl us Cailin Strickland DO CHEMISTRY Final Resu lt [facility] [address] [place] [address], * ESTRADIOL (10/19/2024 10:08 AM CDT) ESTRADIOL 101.0 pg/mL 10/19/2024 11:23 PM CDT [facility] Blood BLOOD SPECIMEN / Unknown Venipuncture / Unknown 10/19/2024 10:08 AM CDT 10/19/2024 10:08 AM CDT Narrative [facility] - 10/19/2024 11:23 PM CDT Estradiol [...] Strickland DO SEND OUTS Final Resu lt [facility] [address] [place] [address], * (ABNORMAL) BASIC METABOLIC PANEL (10/19/2024 10:08 AM CDT) Pathologist [facility] SODIUM 137 136 - 145 mmol/L 10/19/2024 10:30 AM CDT [facility] POTASSIUM 4.6 3.5 - 5.1 mmol/L 10/19/2024 10:30 AM T [facility] CHLORIDE 103 98 - 107 mmol/L 10/19/2024 10:30 AM [facility] CO2,TOTAL 25 22 - 29 mmol/L 10/19/2024 10:30 AM [facility] ANION GAP 9 5 - 18 10/19/2024 10:30 AM [facility] GLUCOSE 96 70 - 99 mg/dL 10/19/2024 10:30 AM [facility] CALCIUM 9.5 8.8 - 10.4 mg/dL 10/19/2024 10:30 AM [facility] Comment: Reference ranges for this test were updated on 04/07/2024 to reflect our healthy population more accurately. Reference range changes are not retroactively applied to results, but previous results using the same methodology can be interpreted in the context of the new reference range. BUN 12 6 - 20 mg/dL 10/19/2024 10:30 AM [facility] CREATININE 1.13 0.70 - 1.20 mg/dL 10/19/2024 10:30 AM [facility] BUN/CREAT RATIO 11 10 - 20 10:30 AM [facility] eGFR 85(L) >90 mL/min/1.7 3m2 10/19/2024 10:30 AM [facility] Comment:As of 2021, eG FR is calculated by the CKD-EPI creatinine equation without race adjustment. eGFR can be influenced by muscle mass, exercise, and diet. The reported eGFR is an estimation only and is only applicable if the renal function is stable. Blood BLOOD SPECIMEN / Unknown Venipuncture / Unknown 10/19/2024 10:08 AM CDT 10/19/2024 10:08 AM [facility] us Cailin Strickland DO CHEMISTRY Final Resu lt [facility] [address] [place] [address] * (ABNORMAL) LIPID PANEL (04/29/2024 2:32 PM SUPERVISOR MAINTENANCE) [facility] CHOLESTEROL, TOTAL 187 <200 mg/dL [facility] HDL CHOLESTEROL 59 > OR = 40 mg/dL [facility] [place] TRIGLYCERIDES 156(H) <150 mg/dL [...] LDL-C. Raffy SS et al. KACEY. 2013;310(19): 5395-7772 (http://education.Jumio/faq/GAK032) CHOL/HDLC RATIO 3.2 <5.0 (calc) [facility] [place] NON HDL CHOLESTEROL 128 <130 mg/dL (calc) [facility] [place] Comment: For patients with diabetes plus 1 major ASCVD risk factor, treating to a non-HDL-C goal of <100 mg/dL (LDL-C of <70 mg/dL) is considered a therapeutic option. Blood BLOOD SPECIMEN / Unknown 04/29/2024 2:32 PM SUPERVISOR MAINTENANCE 04/29/2024 2:33 PM SUPERVISOR MAINTENANCE Narrative [facility] - 04/30/2024 2:14 AM SUPERVISOR MAINTENANCE FASTING:YES FASTING: YES Cailin FONTAINE CHEMISTRY Final Re sult [facility] [address] [place] [address], [facility] [place] [address] [place] [address] * LC HCV ANTIBODY RFX TO QUANT PCR (07/12/2022 11:36 AM SUPERVISOR MAINTENANCE) HCV Ab <0.1 0.0 - 0.9 s/co ratio 07/14/2022 3:08 PM SUPERVISOR MAINTENANCE [facility] ([facility]) Blood BLOOD SPECIMEN / Unknown Venipuncture / Unknown 07/12/2022 11:36 AM SUPERVISOR MAINTENANCE 07/12/2022 11:39 AM SUPERVISOR MAINTENANCE [facility] ([facility]) - 07/14/2022 3:08 PM SUPERVISOR MAINTENANCE Performed at: [address] [place] [id number] Horse Trekking Guide: Daren Pichardo MD, Phone: [phone] [facility] Fin al Result Performing Organization Address City/[facility] Co de Phone Number [facility] ([facility]) [address] [place] [address] * LC HIV-1/O/2, 4TH GENERATION (07/12/2022 11:36 AM SUPERVISOR MAINTENANCE) HIV Scr 4th Gen Non Reactive Non Reactive 07/15/2022 1:07 PM SUPERVISOR MAINTENANCE [facility] ([facility]) Comment: HIV Negative HIV-1/HIV-2 antibodies and HIV-1 p24 antigen were NOT detected. There is no laboratory evidence of HIV infection. Blood BLOOD SPECIMEN / Unknown Venipuncture / Unknown 07/12/2022 11:36 AM SUPERVISOR MAINTENANCE 07/12/2022 11:39 AM SUPERVISOR MAINTENANCE [facility] TEST[facility] ([facility]) - 07/15/2022 1:07 PM SUPERVISOR MAINTENANCE Performed at: [address] [place] [id number] Horse Trekking Guide: Daren Pichardo MD, Phone: [phone] [facility] Fin al Result Performing Organization Address City/[facility]/ZIP Co de Phone Number [facility] ([facility]) [address] [place] [address] from Last 3 Months or Most Recently Relevant to Health Maintenance Insurance MEDICARE PART A HB ONLY [facility] Care Teams Kiln Operator Relationship Specialty Start Date End Date Cailin Strickland [place] [address] PCP - General Family Practice 02/07/23 Cailin Davila PA [address] [place] [address] Physician Rooming House Inspector 04/20/[address] [place] [address] Machine Set Up Operator 11/19/24
--- OUTSIDE RECORDS SUMMARY | 2024-12-02 00:18 | XMS_ITS | Clinical Summary ---
Author Organization [facility] Address [address] [place] [address] Care Team Providers Care Driver'S License Examiner Name Role Phone Md, Not Listed Primary [...] Description 10/05/2024 2:00 PM CDT Office Visit [address] [place] [phone] Dodie Arrieta APRN, CNP Seizures (HCC) (Primary Dx) 09/17/2024 10:00 AM CDT Ancillary Procedure [address] [place] [address] Seizure (HCC) 09/17/2024 8:45 AM CDT Ancillary Procedure [address] [address] Seizure (HCC) 09/07/2024 11:00 AM CDT Office Visit [address] [phone] Dodie Arrieta APRN, CNP Seizures (HCC) (Primary [...] (Moderna) 12+ Yrs M onovalent COVID Vaccine (credit administration officer) 09/01/2020,08/04/2020 Td 06/19/2023 Td adult absorbed PF [...] PM CDT Legal Sex Male 10:25 AM MSWS Gender Identity Nonbinary 08/10/2024 1:25 PM CDT Sexual Orientation Choose not to disclose 2024 1:25 PM CDT Plan of Treatment Health Maintenance Due Date Last Done Comments Hepatitis C Screening 1985 Lipid Screening 1985 Anxiety Screening (CHIKI-2) 09/01/1987 Depression Follow-Up (PHQ-9) 09/01/1987 Influenza Vaccine (#1) 2025 4, 03/31/2023, 03/23/2022, Additional history exists Medicare Wellness Visit 07/10/2025 07/10/19 25, 07/15/2023, 07/12/2022, Additional history exists Adult Tetanus Booster 06/19/2033 06/19/2023 , 06/19/2023, 07/04/2015 RSV Vaccines (1 - 1-dose 75+ series) 2061 Pneumococcal Vaccine Completed 02/07/2023 COVID-19 Vaccine Completed 03/03/2024, , 08/01/2022, Additional [...] not included. PATIENT NAME: Rhys Worrell LOCATION: [place] TEST DATE: 09/17/2024 : 1985 TECH NAME: Swati AGE: 39 DURATION: 00:25:37 GENDER: REF. PHYSICIAN Male Dodie Arrieta, MEDICAL COLLECTIONS SPECIALIST, BUTTON BROACHER CC: N/A MEDICATIONS: Keppra, Prozax REASON FOR [...] Morocho MD us Dodie MaciasRobel Arrieta APRN, BUTTON BROACHER EEG ORDERABLE Fin al Result * MRI [...] Paulo Davenport M.D. us Dodie Arrieta APRN, BUTTON BROACHER MRI ORDERABLE Fin al Result from Last 3 Months Insurance [facility] Care Teams Driver'S License Examiner Relationship Specialty Start Date End Date Md, Not Listed no address PCP - General Internal Medicine 07/23/24
--- OUTSIDE RECORDS SUMMARY | 2024-12-02 00:18 | XMS_ITS | Referral Summary ---
Author Organization [facility] Address [address] [place] [address] Care Team Providers Care Crucible Packer Name Role Phone Md, Not Listed Primary Care Provider Unavailabl e Encounters Date Type Department Care Team Description 10/05/2024 2:00 PM CDT Office Visit [address] [place] [phone] Dodie Arrieta APRN, CNP Seizures (HCC) (Primary Dx) 09/17/2024 8:45 AM CDT Ancillary Procedure [address] [place] [address] Seizure (HCC) 09/17/2024 10:00 AM CDT Ancillary Procedure [address] [place] [address] Seizure (HCC) 09/07/2024 11:00 AM CDT Office Visit [address] [place] [phone] Dodie Arrieta APRN, CNP Seizures (HCC) (Primary [...] (Moderna) 12+ Yrs M onovalent COVID Vaccine (home health registered nurse) 09/01/2020,08/04/2020 Td 06/19/2023 Td adult absorbed PF [...] PM CDT Legal Sex Male 10:25 AM HAT FINISHER Gender Identity Nonbinary 08/10/2024 1:25 PM CDT [...] not included. PATIENT NAME: Rhys Worrell LOCATION: [place] TEST DATE: 09/17/2024 : 1985 TECH NAME: [...] BY: Paulo Davenport M.D. Dodie Arrieta APRN, WEBSPHERE MESSAGE BROKER DEVELOPER MRI ORDERABLE Fin al Result from Last 3 Months Insurance [facility] Care Teams Crucible Packer Relationship Specialty Start Date End Date Md, Not Listed no address PCP - General Internal Medicine 07/23/24
--- OUTSIDE RECORDS SUMMARY | 2024-12-02 01:16 | XMS_ITS | CCD ---
Author Organization Unknown Care Team Providers Care Transportation Sales Consultant Name Role Phone Media Relations Intern, [place] Primary Care Provider Unava ilable Unavailable Chronic Care Management Unavaila ble Summary Purpose DataExchange Insurance Providers Payer name Policy type / Coverage type Covered constitution party ID Effective Begin Date Effective End Date Ucare [facility] Medicare Risk [id number] Unknown Medicaid [facility] Medicare Risk [id number] Unknow n Family History Family History data not found Medication Administered No Medication Administered data Reason For Visit No Reason For Visit data
--- OUTSIDE RECORDS SUMMARY | 2024-12-02 01:17 | XMS_ITS | CCD ---
Author Organization Unknown Care Team Providers Care Motor Vehicle Field Representative Name Role Phone Knotting Machine Operator Portable, [place] Primary Care Provider Unava ilable Unavailable Chronic Care Management Unavaila ble Summary Purpose DataExchange Insurance Providers Payer name Policy type / Coverage type Covered republican ID Effective Begin Date Effective End Date Ucare [facility] Medicare Risk [id number] Unknown Medicaid [facility] Medicare Risk [id number] Unknow n Family History Family History data not found Medication Administered No Medication Administered data Reason For Visit No Reason For Visit data
== END 2024-12-01 10:25 | disposition home or self-care (01) ==
LOC: INJ CL 10:26
PROVIDERS: PCP Family Medicine; Visit Provider Family Medicine
DX: M54.16 Radiculopathy, lumbar region (principal); M51.369 Other intervertebral disc degeneration, lumbar region without mention of lumbar back pain or lower extremity pain
CPT/HCPCS: 64483; J1100; Q9966